=== PATIENT | female | born 1935 | race Caucasian/White ===

== ENCOUNTER 2016-07-13 16:21 | Inpatient (IN) | payer MEDICARE, OTHER ==
[~2016-07-13] VITALS: Ht 175.3 cm; Wt 63.2 kg
--- NOTE | ~2016-07-13 | OP ---
PATIENT NAME: GIBRAN ROMAN MEDICAL RECORD: [id number] :31 LOCATION:D. D.2115 ADMISSION DATE:07/14/16 SURGEON: ANTHONY HI MD DATE OF OPERATION: 07/16/2016 SURGEON: Anthony Hi MD ANESTHESIA: General, Dr. Camarena. OPERATION PERFORMED: Insertion of dual chamber pacing system. PREOPERATIVE DIAGNOSIS: Second-degree heart block with profound bradycardia. POSTOPERATIVE DIAGNOSIS: Second-degree heart block with profound bradycardia. INDICATION FOR OPERATION: Bradycardia. FINDINGS OF THE OPERATION: Pulse generator Medtronic Adapta ADDR01, serial number [id number]. ATRIAL LEAD: Medtronic model number 4574-45, serial number [id number]. Ventricular lead Medtronic model number 4074-52, serial number [id number]. LEAD ANALYSIS: Atrial lead threshold 1 volt, current lead threshold 1.7 milliamps, resistance 576 ohms. P-wave 1.7. Ventricular lead threshold 0.3 volts, current lead threshold 0.4 milliamps, resistance 1000 ohms, R-wave 4.7. ESTIMATED BLOOD LOSS: Less than 5 cc. DESCRIPTION OF PROCEDURE: After informed consent, adequate preoperative medication evaluation, the patient was brought to the operating room and placed on the table in the supine position. After induction of general endotracheal anesthesia and application of appropriate monitoring devices, the left chest and neck were prepped and draped in sterile field, utilizing Betadine scrub, alcohol, and Betadine solution. A Betadine-impregnated drape was also used. A subclavian incision made and dissection carried down the fascia. Hemostasis maintained with electrocautery. A pacemaker pocket was formed. Subclavian vein was cannulated with introducers, leads placed in the heart. The above electrophysiologic study was done. The leads were felt to be in good position and the leads were secured. The leads were then connected to the pulse generator and pacemaker placed in the pocket. Pacemaker fired, captured and sensed appropriately. Pocket was irrigated. Instrument count and sponge count were correct times 2. Pocket was closed in layers utilizing 3-0 Vicryl on deep subcutaneous tissue, 5-0 subcuticular Monocryl on the skin. Sterile dressings were applied. The patient tolerated the procedure well and transferred to postanesthesia recovery in satisfactory condition. TRANSINT:[id number] Voice Confirmation ID: [id number] DOCUMENT ID: [id number] OPERATIVE REPORT [id number] GIBRAN ROMAN EDWARD MD CC: [id number] DICTATION DATE: 07/16/16 1432 BOTTLE LINE WORKER: 07/16/16 2340 ADM IN [id number] [place] [address]
--- NOTE | ~2016-07-13 | EC ---
PATIENT:GIBRAN ROMAN DATE OF SERVICE: 07/14/16 SEX: F MEDICAL RECORD: [id number] DATE OF : 31 LOCATION:D. D.211 AGE OF PATIENT: 81 ADMISSION DATE: 07/14/16 REFERRING PHYSICIAN: INTERPRETING PHYSICIAN: JUAN PULIDO M.D. ECHOCARDIOGRAM REPORT ECHO CHARGES 4 ECHO COMPLETE CLINICAL DIAGNOSIS: 2ND DEGREE AV BLOCK, CHEST PAIN ECHOCARDIOGRAPHIC MEASUREMENTS (adult normal given) AC root (d.<3.7cm) 3.0 LV Septum d (<1.2 cm> 1.1 Valve Excursion 1.8 LV Septum (systole) 1.5 Left Atria (s.<4.0cm> 3.6 LVPW d(<1.2cm) 1.3 RV (d.<2.3cm) 3.4 LVPW (sytole) 1.4 LV diastole(<5.6CM) 4.8 MV E-F(>70mm/sec) LV systole 2.5 LVOT Diameter 2.0 MV exc.(>10mm) 1.2 Est.ejection fraction (50-75%) Pericardial Effusion N DOPPLER: LVIT A 79.0 E 96.0 LA RVSP 31 LVOT 96 AOP1/2T Asc. Ao 170 RVOT 68 RA PA 111 AV Gradient Peak 11.53 AV Mean 6.48 AV Area 1.7 MV Gradient Peak 4.67 MV Mean 2.29 MV Area COMMENTS: Machine Clipper: Dorcas CARRERA Two Way Radio Installer:2 Dr. Pulido TAPE# PACS DATE OF SERVICE: 07/14/2016 INDICATION: Chest pain. REFERRING PHYSICIAN: Jonnathan Troncoso MD DESCRIPTION: Left ventricle is normal size and function. No wall motion abnormalities are seen. Estimated ejection fraction is 55%. Mitral valve is structurally normal. There is mild regurgitation noted. The left atrium is normal in size. The aortic valve is trileaflet. I do not see any stenosis or ECHOCARDIOGRAM REPORT [id number] GIBRAN ROMAN regurgitation. The right ventricle is mildly dilated. Tricuspid valve is structurally normal. There is mild regurgitation noted. The right atrium is normal in size. There is no pericardial effusion seen. IMPRESSION: 1. Normal left ventricular size and function, ejection fraction of 55%. 2. Mild mitral regurgitation. 3. Mild tricuspid regurgitation. TRANSINT:[id number] Voice Confirmation ID: [id number] DOCUMENT ID: [id number] JUAN PULIDO M.D. CC: [id number] DICTATION DATE: 07/15/16951 WINDOWS MOBILE DEVELOPER: 07/15/16 1100 ADM IN [id number] [place] [address]
[~2016-07-13 16:21] MED LIST: BUPROPION HCL100 M1 PO; BUPROPION PO; GLUCOSAMINE & C1 CAP PO; HYDROCODON-ACE1 EAC7 PO; IPRAT-ALBUT 0.5-3 ML UPD; LEVOFLOXACIN PO; MAVIK1 MG PO; MAVIK2 MG PO; NORVASC5 MG PO; PRAVACHOL20 MG; PRAVACHOL20 MG PO; PREMPRO 0.3 MG-1 TAB PO; PROMOLAXIN100 MG PO; PROVERA2.5 MG PO; XANAX0.5 MG PO
[2016-07-13 16:51] LABS: HEMATOCRIT 40.3 % (36.0-48.0); HEMOGLOBIN 13.1 g/dL (12-16); MCH 30.3 pg (26.0-34.0); MCHC 32.5 g/dL (31.0-37.0); MCV 93.1 fL (80.0-100.0); PLATELET COUNT 80 10x3/uL (130-400); RBC 4.33 10x6/uL (4.00-5.40); WBC 8.1 10x3/uL (4.8-10.8)
[2016-07-13 17:21] LABS: ALBUMIN 4.3 g/dL (3.4-5.0); ALKALINE PHOSPHATASE 58 U/L (46-116); ALT (SGPT) 28 U/L (10-68); CALC OSMOLALITY 283 mosm/kg (275-300); CALCIUM 8.9 mg/dL (8.5-10.1); CARBON DIOXIDE 27.5 mmol/L (21.0-32.0); CHLORIDE - SERUM 105 mmol/L (98-107); CREATININE - SERUM 1.9 mg/dL (0.6-1.3); GLUCOSE 92 mg/dL (74-106); POTASSIUM - SERUM 4.3 mmol/L (3.5-5.1); PROTEIN - SERUM 6.9 g/dL (6.4-8.2); SODIUM 141 mmol/L (136-145); UREA NITROGEN 22 mg/dL (7-18); eGFR NON AFRICAN AMERICAN 27 mL/min (90-120)
[2016-07-13 17:30] LABS: CHOL - HDL RATIO 2.2 ratio (2.3-4.1); CHOLESTEROL, TOTAL 112 mg/dL (0-200); CKMB 1.5 U/L (0.0-3.6); CREATINE KINASE 101 UL (21-215); HDL CHOLESTEROL 50 mg/dL (32-96); LDL CHOLESTEROL 37 mg/dL (0-100); LDL-HDL RATIO 0.7 ratio (1.5-3.5); TRIGLYCERIDE 126 mg/dL (30-200)
[2016-07-13 17:35] LABS: TROPONIN-I < 0.017 ng/mL (0.000-0.060)
[2016-07-13 17:58] LABS: LYMPHOCYTES 49 % (15-50); MONOCYTES 12 % (2-11); NEUTROPHILS 38 % (40-80); PLATELET ESTIMATE DECREASED
[2016-07-13] MEDS ORDERED: SYNTHROID25 MCG PO (19:44)
[2016-07-13] MEDS ORDERED: PRAVASTATIN SOD10 MG PO (19:52)
[2016-07-13 19:53] VITALS: BP 149/63; BMI 22.9
[2016-07-14] VITALS: BP 123/62
[2016-07-14 04:00] VITALS: BP 110/59
[2016-07-14 08:00] VITALS: BP 125/55
[2016-07-14 12:00] VITALS: BP 122/64
[2016-07-14 16:00] VITALS: BP 128/63
[2016-07-14 19:00] VITALS: BP 134/68
[2016-07-15] VITALS: BP 143/62
[2016-07-15 04:23] VITALS: BP 136/57
[2016-07-15 08:00] VITALS: BP 137/62
[2016-07-15 12:00] VITALS: BP 116/65
[2016-07-15 19:46] VITALS: BP 103/49
[2016-07-15 23:27] VITALS: BP 131/63
[2016-07-16 03:43] VITALS: BP 126/45
[2016-07-16 05:07] LABS: HEMATOCRIT 39.6 % (36.0-48.0); HEMOGLOBIN 12.8 g/dL (12-16); MCH 30.2 pg (26.0-34.0); MCHC 32.3 g/dL (31.0-37.0); MCV 93.4 fL (80.0-100.0); PLATELET COUNT 93 10x3/uL (130-400); RBC 4.24 10x6/uL (4.00-5.40); WBC 6.8 10x3/uL (4.8-10.8)
[2016-07-16 05:12] LABS: APTT 27.6 SECONDS (22.8-39.4); INR 1.2 (0.85-1.17); PROTIME 15.1 SECONDS (11.6-15.0)
[2016-07-16 05:13] LABS: ANION GAP 12.2 mmol/L (8-16); CALCIUM 8.7 mg/dL (8.5-10.1); CARBON DIOXIDE 24.9 mmol/L (21.0-32.0); CREATININE - SERUM 1.9 mg/dL (0.6-1.3); POTASSIUM - SERUM 4.1 mmol/L (3.5-5.1)
[2016-07-16 07:37] VITALS: BP 114/53
[2016-07-16 11:22] VITALS: BP 127/53
[2016-07-16 13:03] VITALS: Ht 175.3 cm; Wt 63.2 kg
[2016-07-16 15:46] VITALS: BP 139/65
[2016-07-16 16:00] VITALS: BP 145/68
[2016-07-16 20:00] VITALS: BP 148/66
[2016-07-17 00:59] VITALS: BP 143/68
[2016-07-17 04:16] VITALS: BP 141/67
[2016-07-17 08:02] VITALS: BP 151/86
[2016-07-17 11:43] VITALS: BP 130/70
[2016-07-17 11:53] LABS: BASOPHILS 0.1 % (0-2); EOSINOPHILS 0.5 % (0-7); HEMATOCRIT 41.2 % (36.0-48.0); HEMOGLOBIN 13.5 g/dL (12-16); IMMATURE GRANULOCYTES 1.4 % (0-5); LYMPHOCYTES 9.8 % (15-50); MCH 30.3 pg (26.0-34.0); MCHC 32.8 g/dL (31.0-37.0); MCV 92.4 fL (80.0-100.0); MONOCYTES 28.7 % (2-11); NEUTROPHILS 59.5 % (40-80); PLATELET COUNT 85 10x3/uL (130-400); RBC 4.46 10x6/uL (4.00-5.40); RDW 14.7 % (11.5-14.5)
[2016-07-17 12:04] LABS: CALCIUM 8.3 mg/dL (8.5-10.1); CARBON DIOXIDE 26.7 mmol/L (21.0-32.0); CREATININE - SERUM 1.8 mg/dL (0.6-1.3); POTASSIUM - SERUM 3.7 mmol/L (3.5-5.1)
[2016-07-17 12:07] LABS: WBC 12.1 10x3/uL (4.8-10.8)
--- NOTE | 2016-07-18 17:02 | DS ---
PATIENT:GIBRAN ROMAN :31 MEDICAL RECORD: [id number] DISCHARGE SUMMARY ADMISSION DATE: 07/14/16 DISCHARGE DATE: 07/17/16 DATE OF ADMISSION: 07/14/2016 DATE OF DISCHARGE: 07/17/2016 ADMITTING DIAGNOSES: 1. Chest pain. 2. Bradycardia. 3. Chronic back pain, chronic compression fracture, sick sinus syndrome, Mobitz type 1 (Wenckebach) atrioventricular block, Mobitz type 2 atrioventricular block, Mobitz type 1 second degree atrioventricular block, bradycardia, presyncope, other chronic problems, thrombocytopenia and chronic kidney disease. HOSPITAL COURSE: This is a lady of Dr. Guthrie. She was admitted with diagnoses as outlined above. Details are well-outlined in the history of the present illness, H&P. All events, lab procedures, diagnostic testing are well documented in the records. The patient was admitted, appropriate home medicines continued. Cardiology consulted. She was seen by Dr. Pulido, was found to be in heart block. DIAGNOSES: Shortness of breath on exertion, felt secondary to bradycardia. 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 She was continued on telemetry monitoring. Dr. Pulido consulted Dr. Hi. She was felt to be a candidate for permanent pacemaker. She was taken to the OR where she had insertion of a dual chamber pacing system. She tolerated the procedure well, was awakened and taken to the recovery room in stable condition. She was kept overnight. She has done well postoperatively. OTHER PROCEDURES: Included her echocardiogram that showed EF of 55%, mild mitral regurgitation, mild tricuspid regurgitation. PHYSICAL EXAMINATION: Today she is afebrile, vital signs stable. She is ambulating the entire length of the nurses' station. Pulse 62, respirations 20, blood pressure 130/70, O2 sat 100%. She is in a paced rhythm on the monitor. LABORATORY DATA: White count 12, hemoglobin 13.5, platelets 85, which is about her baseline. BUN 16, serum creatinine 1.8 down from 1.9, sodium 139, potassium 3.7, chloride 105, CO2 of 26.5, glucose 92, calcium 8.3. She is stable for dismissal home. Please refer to med rec. DIAGNOSES: 1. Sick sinus syndrome, Mobitz type ____ (Wenckebach) atrioventricular block, Mobitz type 2 atrioventricular block. 2. Mobitz type 1 second degree atrioventricular block, bradycardia status post permanent dual chamber pacemaker, presyncope, chronic compression fracture, chronic back pain, chronic thrombocytopenia, chronic kidney disease stage III. FOLLOWUP: She will follow up with house calls with Dr. Saldaña. Follow up with Dr. Pulido and Dr. Hi. DISCHARGE SUMMARY REPORT [id number] GIBRAN ROMAN Greater than 30 minutes was spent on this discharge. TRANSINT:[id number] Voice Confirmation ID: [id number] DOCUMENT ID: [id number] Dictated By: JACKIE WINN RN I have interviewed/examined the above patient and agree with these documented findings. SHONDA CARSON DO at 1702 CC: [id number] DICTATION DATE: 07/17/16 1535 PHARMACY INTAKE TECHNICIAN: 07/18/16 0251 DIS IN 07/17/16 [id number] [place] [address]
== END 2016-07-17 14:30 | disposition home or self-care (01) | DRG 243 ==
LOC: D.ER 16:21 → D.M2 18:30 → OBSVTIME 18:30 → D.M2 18:30
PROVIDERS: Emergency Medicine; Family Medicine; Internal Medicine Cardiovascular Disease; ADMIT Emergency Medicine
PROC: 02H63JZ Insertion of Pacemaker Lead into Right Atrium, Percutaneous Approach (ICD-10-PCS; 2016-07-16)
PROC: 02HK3JZ Insertion of Pacemaker Lead into Right Ventricle, Percutaneous Approach (ICD-10-PCS; 2016-07-16)
PROC: 0JH606Z Insertion of Pacemaker, Dual Chamber into Chest Subcutaneous Tissue and Fascia, Open Approach (ICD-10-PCS; principal; 2016-07-16 12:00)
DX: I44.1 Atrioventricular block, second degree (principal); S32.9XXA Fracture of unspecified parts of lumbosacral spine and pelvis, initial encounter for closed fracture; I44.7 Left bundle-branch block, unspecified; D69.6 Thrombocytopenia, unspecified; I12.9 Hypertensive chronic kidney disease with stage 1 through stage 4 chronic kidney disease, or unspecified chronic kidney disease; N18.3 Chronic kidney disease, stage 3 (moderate); F41.8 Other specified anxiety disorders; Z87.891 Personal history of nicotine dependence

== ENCOUNTER → 2016-11-02 20:46 | Outpatient (CLI) | payer MEDICARE, OTHER ==
[2016-07-16 13:03] VITALS: BMI 20.5
[~2016-11-02 20:46] MED LIST changes: +PRAVASTATIN SOD10 MG PO; +SYNTHROID25 MCG PO
== END | disposition home or self-care (01) ==
LOC: D.MAMMO 15:30
DX: Z12.31 Encounter for screening mammogram for malignant neoplasm of breast (principal)

== ENCOUNTER 2018-06-24 07:29 | Outpatient (CLI) | payer MEDICARE, OTHER ==
[~2018-06-24] VITALS: Ht 175.3 cm; Wt 65.9 kg
[~2018-06-24 07:29] MED LIST changes: -PRAVASTATIN SOD10 MG PO
[2018-06-24 08:13] LABS: HEMATOCRIT 38.8 % (36.0-48.0); HEMOGLOBIN 13.1 g/dL (12-16); MCH 29.6 pg (26.0-34.0); MCHC 33.8 g/dL (31.0-37.0); MCV 87.8 fL (80.0-100.0); PLATELET COUNT 127 10x3/uL (130-400); RBC 4.42 10x6/uL (4.00-5.40); RDW 17.8 % (11.5-14.5); WBC 69.2 10x3/uL (4.8-10.8)
[2018-06-24 08:15] LABS: ANION GAP 15.9 mmol/L (8-16); CALCIUM 8.5 mg/dL (8.5-10.1); CARBON DIOXIDE 23.8 mmol/L (21.0-32.0); CREATININE - SERUM 1.4 mg/dL (0.6-1.3); POTASSIUM - SERUM 3.7 mmol/L (3.5-5.1)
[2018-06-24 08:17] LABS: INR 1.39 (0.85-1.17); PROTIME 16.4 SECONDS (11.6-15.0)
[2018-06-24] MEDS ORDERED: TRANDOLAPRIL2 MG PO (09:02)
[2018-06-24] MEDS ORDERED: CITALOPRAM HYDROBROM PO (09:04)
[2018-06-24] MEDS ORDERED: ATARAX 25 MG TA25 MG PO (09:06)
[2018-06-24] MEDS ORDERED: LUNESTA1 MG PO (09:07)
[2018-06-24 09:16] VITALS: BP 126/63; Ht 175.3 cm; Wt 65.9 kg
[2018-06-24 09:23] LABS: ACANTHOCYTES OCC; ANISOCYTOSIS OCC; EOSINOPHILS 3 % (0-7); LYMPHOCYTES 12 % (15-50); MONOCYTES 42 % (2-11); NEUTROPHILS 18 % (40-80); PLATELET ESTIMATE NORMAL
[2018-06-24 12:21] LABS: PATH REVIEW PERIPHERAL SMEAR REVIEWED
--- NOTE | 2018-06-24 13:31 | NUR ---
1150 FREQUENT VS DONE DRESSING CDI ICE PACK APPLIED. TAKING LIQ WELL. 1215 VOIDED IN BATHROOM, INSTRUCTIONS GIVEN. 1300 IV REMOVED, INSTRUCTIONS GIVEN TO PT AND SON.
== END 2018-06-24 13:30 | disposition home or self-care (01) ==
LOC: D.SP 07:29 → D.OPS 10:00 → D.SP 10:00
PROVIDERS: General Practice; ATTEND Internal Medicine Hematology & Oncology
DX: D69.49 Other primary thrombocytopenia (principal); D72.829 Elevated white blood cell count, unspecified; Z01.812 Encounter for preprocedural laboratory examination

== ENCOUNTER → 2018-08-19 09:18 | Outpatient (CLI) | payer MEDICARE, OTHER ==
[2018-06-24 09:16] VITALS: BMI 21.4
[~2018-08-19 09:18] MED LIST changes: +ATARAX 25 MG TA25 MG PO; +CITALOPRAM HYDROBROM PO; +LUNESTA1 MG PO; +TRANDOLAPRIL2 MG PO
== END | disposition home or self-care (01) ==
LOC: D.CT 09:18
PROVIDERS: ATTEND Nurse Practitioner Family
DX: J98.4 Other disorders of lung (principal)

== ENCOUNTER 2018-12-22 10:52 | Emergency (ER) | payer MEDICARE, OTHER ==
[~2018-12-22] VITALS: Ht 175.3 cm; Wt 61.8 kg
[2018-12-22 11:01] VITALS: Ht 175.3 cm; Wt 61.8 kg
[2018-12-22] MEDS ORDERED: NAPROSYN500 MG PO (11:42)
[2018-12-22 12:15] VITALS: BP 133/64
== END 2018-12-22 12:15 | disposition home or self-care (01) ==
LOC: D.ER 10:52
DX: M54.5 Low back pain (principal)

== ENCOUNTER 2019-01-29 19:45 | Inpatient (IN) | payer MEDICARE, OTHER ==
[~2019-01-29] VITALS: Ht 175.3 cm; Wt 66.8 kg
[~2019-01-29 19:45] MED LIST changes: +NAPROSYN500 MG PO
[2019-01-29 20:22] LABS: HEMATOCRIT 33.3 % (36.0-48.0); HEMOGLOBIN 10.7 g/dL (12-16); MCH 29.2 pg (26.0-34.0); MCHC 32.1 g/dL (31.0-37.0); MCV 90.7 fL (80.0-100.0); PLATELET COUNT 74 10x3/uL (130-400); RBC 3.67 10x6/uL (4.00-5.40); RDW 17.9 % (11.5-14.5)
[2019-01-29 20:23] LABS: WBC 66.1 10x3/uL (4.8-10.8)
[2019-01-29 20:27] LABS: INR 1.57 (0.85-1.17); PROTIME 18.2 SECONDS (11.6-15.0)
[2019-01-29 20:28] LABS: APTT 39.4 SECONDS (22.8-39.4)
[2019-01-29 20:29] LABS: CALC OSMOLALITY 280 mosm/kg (275-300); CALCIUM 8.1 mg/dL (8.5-10.1); CARBON DIOXIDE 21.4 mmol/L (21.0-32.0); CHLORIDE - SERUM 103 mmol/L (98-107); CREATININE - SERUM 1.5 mg/dL (0.6-1.3); GLUCOSE 121 mg/dL (74-106); POTASSIUM - SERUM 3.8 mmol/L (3.5-5.1); SODIUM 139 mmol/L (136-145); UREA NITROGEN 19 mg/dL (7-18); eGFR NON AFRICAN AMERICAN 35 mL/min (90-120)
--- NOTE | 2019-01-29 20:40 | NUR ---
PT TO RADIOLOGY.
[2019-01-29 20:45] LABS: ALBUMIN 4.1 g/dL (3.4-5.0); ALKALINE PHOSPHATASE 67 U/L (46-116); ALT (SGPT) 31 U/L (10-68); BILIRUBIN - TOTAL 2.47 mg/dL (0.2-1.3); CKMB 0.3 U/L (0.0-3.6); CREATINE KINASE 36 UL (21-215); HYPOCHROMASIA 2+; LYMPHOCYTES 13 % (15-50); MAGNESIUM - SERUM 1.6 mg/dL (1.8-2.4); MONOCYTES 14 % (2-11); NEUTROPHILS 58 % (40-80); PLATELET ESTIMATE DECREASED; PROTEIN - SERUM 6.6 g/dL (6.4-8.2); THYROID STIMULATING HORMONE 1.71 uIU/mL (0.36-3.74)
[2019-01-29 20:46] LABS: ACANTHOCYTES 1+; ANISOCYTOSIS 1+; POIKILOCYTOSIS 1+; POLYCHROMASIA 1+; TEAR DROP CELLS 2+; TROPONIN-I < 0.017 ng/mL (0.000-0.060)
[2019-01-29 20:57] VITALS: BP 111/42
--- NOTE | 2019-01-29 21:02 | NUR ---
PT RETURNED FROM RADIOLOGY.
[2019-01-29 21:46] LABS: APPEARANCE CLEAR (CLEAR); BACTERIA MANY /hpf (NEGATIVE); BILIRUBIN NEGATIVE (NEGATIVE); COLOR YELLOW (YELLOW); GLUCOSE NEGATIVE (NEGATIVE); KETONE MODERATE mg/dL (NEGATIVE); MUCUS >1+ /lpf (NONE SEEN); NITRITE NEGATIVE (NEGATIVE); PROTEIN TRACE mg/dL (NEGATIVE); UROBILINOGEN NORMAL (NORMAL)
[2019-01-29 21:57] LABS: UDS - AMPHET NEGATIVE QUAL (NEGATIVE); UDS - BARB NEGATIVE QUAL (NEGATIVE); UDS - BENZO NEGATIVE QUAL (NEGATIVE); UDS - COCAINE NEGATIVE QUAL (NEGATIVE); UDS - OPIATE NEGATIVE QUAL (NEGATIVE); UDS - PCP NEGATIVE QUAL (NEGATIVE); UDS - THC NEGATIVE QUAL (NEGATIVE)
--- NOTE | 2019-01-29 22:03 | NUR ---
PT GIVEN ICE WATER TO DRINK, DENIES ANY FURTHER NEEDS AT THIS TIME, CALL LIGHT WITHIN REACH, SON AT BEDSIDE. WILL CONTINUE TO MONITOR.
[2019-01-29 22:36] VITALS: BP 111/48
--- NOTE | 2019-01-29 23:20 | NUR ---
ADMITTED TO 2138 VIA STRETCHER TOLERATED WELL TO BED LOW AND LOCKED AND CALL LIGHT PROVIDED SRX2 AND ASSISTED WITH COMFORT AND FOOD
--- NOTE | 2019-01-29 23:30 | NUR ---
PT'S IV ROCEPHIN FINISHED.
--- NOTE | 2019-01-29 23:42 | NUR ---
PT DOES NOT KNOW HOME MEDS LAST MED LIST IN THE COMPUTER IS FROM 2016
[2019-01-29 23:55] VITALS: BP 107/40; BMI 21.3
[2019-01-30 04:00] VITALS: BP 113/47
[2019-01-30 06:06] LABS: ALBUMIN 3.6 g/dL (3.4-5.0); ANION GAP 15.4 mmol/L (8-16); BILIRUBIN - TOTAL 2.07 mg/dL (0.2-1.3); CARBON DIOXIDE 23.3 mmol/L (21.0-32.0); CREATININE - SERUM 1.5 mg/dL (0.6-1.3); POTASSIUM - SERUM 3.7 mmol/L (3.5-5.1)
[2019-01-30 06:09] LABS: HEMATOCRIT 29.6 % (36.0-48.0); HEMOGLOBIN 9.6 g/dL (12-16); MCH 29.2 pg (26.0-34.0); MCHC 32.4 g/dL (31.0-37.0); PLATELET COUNT 72 10x3/uL (130-400); RBC 3.29 10x6/uL (4.00-5.40); RDW 18.3 % (11.5-14.5)
[2019-01-30 06:12] LABS: WBC 55.8 10x3/uL (4.8-10.8)
[2019-01-30 06:48] LABS: ANISOCYTOSIS 1+; EOSINOPHILS 1 % (0-7); LYMPHOCYTES 8 % (15-50); MONOCYTES 15 % (2-11); NEUTROPHILS 44 % (40-80); PLATELET ESTIMATE DECREASED; POIKILOCYTOSIS 2+
[2019-01-30 08:50] VITALS: BP 119/46
[2019-01-30 13:42] VITALS: BP 102/50
[2019-01-30 14:04] VITALS: BMI 21.4
--- NOTE | 2019-01-30 15:46 | NUR ---
PT NOT ABLE TO GIVE ACCURATE MED LIST. SON WORKING TONIGHT BUT STATES WILL TRY AND BRING LIST FROM HOME OR BOTTLES TO UPDATE.
[2019-01-30 18:26] VITALS: BP 115/48
--- NOTE | 2019-01-30 19:52 | NUR ---
REPORT RECIEVED AND ROUNDING COMPLETE. PATIENT LAYING IN BED IN SUPINE POSITITON. PATIENT HAS A RIGHT WRIST PIV THAT IS PATENT AND RUNNING NS AT THIS TIME. PATIENT STATES SHE IS FEELING BETTER TODAY AND HOPE TO GO HOME IN THE MORNING. TRUNG HAS A LISSA ALARM ON AND WORKING EVEN THO SHE IS A&O AT THIS TIME. PATIENT STATES SHE HAS NO NEEDS AT THIS TIME. CALL LIGHT WITHIN REACH AND BED IN LOWEST LOCKED POSITION.
[2019-01-30 20:00] VITALS: BP 109/52
[2019-01-31] VITALS: BP 108/52
--- NOTE | 2019-01-31 03:06 | NUR ---
I have reviewed this patient and I concur with the Shift Assessment completed by the Licensed Practical Nurse today this shift.
[2019-01-31 04:30] VITALS: BP 122/44
[2019-01-31 06:47] LABS: ALBUMIN 3.4 g/dL (3.4-5.0); ANION GAP 18.2 mmol/L (8-16); BILIRUBIN - TOTAL 0.92 mg/dL (0.2-1.3); CALCIUM 7.5 mg/dL (8.5-10.1); CARBON DIOXIDE 18.2 mmol/L (21.0-32.0); CREATININE - SERUM 1.3 mg/dL (0.6-1.3); MAGNESIUM - SERUM 1.6 mg/dL (1.8-2.4); POTASSIUM - SERUM 3.4 mmol/L (3.5-5.1); PROTEIN - SERUM 5.5 g/dL (6.4-8.2)
[2019-01-31 06:54] LABS: HEMATOCRIT 28.2 % (36.0-48.0); HEMOGLOBIN 9.1 g/dL (12-16); MCH 28.8 pg (26.0-34.0); MCHC 32.3 g/dL (31.0-37.0); MCV 89.2 fL (80.0-100.0); PLATELET COUNT 61 10x3/uL (130-400); RBC 3.16 10x6/uL (4.00-5.40); RDW 18.5 % (11.5-14.5); WBC 57.6 10x3/uL (4.8-10.8)
[2019-01-31 07:20] LABS: EOSINOPHILS 5 % (0-7); MONOCYTES 4 % (2-11); NEUTROPHILS 53 % (40-80); PLATELET ESTIMATE DECREASED
--- NOTE | 2019-01-31 07:20 | NUR ---
RECEIVED REPORT. ASSUMED CARE OF PATIENT. PATIENT AWAKE AND ALERT BUT STATES SHE FEELS LIKE SHE CAN'T THINK STRAIGHT AT TIME BECAUSE OF THE INFECTION IN HER URINE. RESP EVEN AND UNLABORED. PACED ON TELEMETRY, RATE 89. CALL LIGHT WITHIN REACH. NO DISTRESS.
[2019-01-31 07:34] LABS: LYMPHOCYTES 24 % (15-50)
[2019-01-31 08:36] VITALS: BP 110/46
--- NOTE | 2019-01-31 11:28 | NUR ---
RECEIVING BATH AT THIS TIME. NO DISTRESS.
[2019-01-31 12:30] VITALS: BP 122/53
--- NOTE | 2019-01-31 15:22 | NUR ---
PATIENT LYING IN BED WITH EYES OPEN,FAMILY AT BEDSIDE. CALL LIGHT WITHIN REACH. NO DISTRESS. DENIES ANY NEEDS. IV FLUIDS INFUSING ORDERED.
[2019-01-31 16:07] VITALS: BP 122/50
--- NOTE | 2019-01-31 19:10 | NUR ---
EVENING ROUNDS COMPLETE, WILL CONTINUE POC. PATIENT IS AAOX4, UP WITH ASSIST. NO S/S OF DISTRESS OBSERVED, RR EVEN AND UNLABORED ON ROOM AIR. IV TO RT WRIST, PATENT, INFUSING NS @125ML/HR. PATIENT DENIES NEEDS AT THIS TIME. CL IN REACH, BED LOCKED AND LOWERED. WILL CTM.
[2019-01-31 20:03] VITALS: BP 139/62
[2019-02-01 00:30] VITALS: BP 136/61
--- NOTE | 2019-02-01 01:19 | NUR ---
PATIENT O2 SAT WAS 87% DURING MIDNIGHT VITALS. 2L O2 VIA NC APPLIED. PATIENT O2 SAT NOW 93% PATIENT IS REFUSING TO WEAR THE NC AND IS REMOVING IT REPEATEDLY. EXPLAINED TO PATIENT THAT IF HER O2 SAT DOESN'T STAY IN THE 90S SHE MUST WEAR THE O2 IN ORDER TO BREATHE BETTER. PATIENT AGREES AND THEN REMOVES AGAIN. WILL CTM.
[2019-02-01 04:46] VITALS: BP 127/61
[2019-02-01 06:44] LABS: ALBUMIN 3.4 g/dL (3.4-5.0); ANION GAP 14.8 mmol/L (8-16); BILIRUBIN - TOTAL 0.79 mg/dL (0.2-1.3); CARBON DIOXIDE 21.2 mmol/L (21.0-32.0); CREATININE - SERUM 1.1 mg/dL (0.6-1.3); MAGNESIUM - SERUM 1.7 mg/dL (1.8-2.4); PROTEIN - SERUM 6.3 g/dL (6.4-8.2)
[2019-02-01 06:51] LABS: HEMATOCRIT 29.5 % (36.0-48.0); HEMOGLOBIN 9.4 g/dL (12-16); MCHC 31.9 g/dL (31.0-37.0); PLATELET COUNT 65 10x3/uL (130-400); RBC 3.24 10x6/uL (4.00-5.40); RDW 18.9 % (11.5-14.5); WBC 66.1 10x3/uL (4.8-10.8)
--- NOTE | 2019-02-01 07:00 | NUR ---
RECEIVED REPORT. ASSUMED CARE OF PATIENT. PATIENT RESTING IN BED WITH EYES CLOSED. ADJUSTED TEMPERATURE IN ROOM PER PATIENT REQUEST. PATIENT CONFUSED THIS AM AND REPORTED THAT PATIENT WAS CONFUSED THROUGHOUT THE NIGHT ACCUSING NIGHT NURSE OF NOT ADMINISTERING HER MEDICATIONS, ETC. RESP EVEN AND UNLABORED, WET NON-PRODUCTIVE COUGH NOTED. NO DISTRESS. REORIENTED.
[2019-02-01 07:28] LABS: ANISOCYTOSIS OCC; EOSINOPHILS 3 % (0-7); LYMPHOCYTES 17 % (15-50); MONOCYTES 3 % (2-11); NEUTROPHILS 69 % (40-80); POIKILOCYTOSIS OCC
[2019-02-01 07:29] LABS: PLATELET ESTIMATE DECREASED
[2019-02-01 08:00] VITALS: BP 134/60
--- NOTE | 2019-02-01 09:56 | NUR ---
PATIENT SITTING TO SIDE OF BED. PATIENTS SON AT BEDSIDE. CALL LIGHT WITHIN REACH. NO DISTRESS.
--- NOTE | 2019-02-01 10:34 | NUR ---
PATIENT OOB TO CHAIR AT BEDSIDE VIA THIS CLIENT SUPPORT MANAGER. PATIETN ENCOURAGED TO SIT UP. PATIENT SPENDING MOST TIME IN BED AND HAS DEVELOPED A COUGH. EXPLAINED THAT SITTING UP WOULD ALLOW BETTER EXPANSION OF LUNGS, AND GETTING UP MOVING AROUND WILL HELP PREVENT SECRETIONS FROM SETTLING IN LUNGS. PATIENT NOT COMPREHENDING MOST OF THE DIRECTIONS BUT THE SON AT BEDSIDE APPRECIATE EXPLANATIONS OF ACTIVITES.
[2019-02-01 12:00] VITALS: BP 134/62
[2019-02-01] MEDS ORDERED: JAKAFI5 MG PO (12:10)
--- NOTE | 2019-02-01 12:30 | NUR ---
PAGED ABOUT PATIENT TO REQUEST TO RESTART THE MEDICAION - JAKAFI 10MG PO BID, PRIMARY WILL NOT RESTART THIS HOME MEDICATION WITHOUT SPEAKING TO DR. CHACON FIRST.
--- NOTE | 2019-02-01 12:47 | NUR ---
HERE FOR ROUNDS AND GAVE ORDERS TO CONTINUE TO HOLD THE JAKAFI WHILE PATIENT IS BEING TREATED WITH ANTIBIOTICS.
[2019-02-01 12:51] VITALS: Ht 175.3 cm; Wt 66.8 kg
[2019-02-01 16:00] VITALS: BP 124/62
--- NOTE | 2019-02-01 16:11 | MORECARE ---
CASE MANAGEMENT DISCHARGE SUMMARY PATIENT: GIBRAN ROMAN UNIT: [id number] ADM DATE: 01/30/19 AGE: 84 : 33 SEX: F ROOM/BED: D.213 AUTHOR: BERNARDINO WADDELL PHYSICIAN: REFERRING PHYSICIAN: LAKIA LOBATO MD DATE OF SERVICE: 02/01/19 Discharge Plan Patient Name: GIBRAN ROMAN Facility: [facility]:[place] : 1935 Planned Disposition: Anticipated Discharge Date: Discharge Date: Expected LOS: Initial Reviewer: [email or web address] Initial Review Date: 02/01/2019 Generated: 02/01/19 5:10 pm Comments DCP- Discharge Planning Updated by [email or web address]: Geovanna Marlena on 02/01/19 3:[address] Patient Name: GIBRAN ROMAN Admission Status: ER Accout number: [id number] Admission Date: 01-30-2019 : 1935 Admission Diagnosis: Attending: CHRIS Current LOS: 2 Anticipated DC Date: Planned Disposition: Primary Insurance: MEDICARE A & B Discharge Planning Comments: CM met with patient at bedside after explaining CM role and obtaining verbal consent. CM discussed availability / needs of home health, REHAB and medical equipment. STATES NO NEEDS AND HAS CAB DRIVER. STATES SHE PLANS TO DC SATURDAY. CM TO FOLLOW. Dependency Director: Geovanna Mendiola DCPIA - Discharge Planning Initial Assessment Updated by [email or web address]: Geovanna Mendiola on 02/01/19 4:04 pm * Is the patient Alert and Oriented? Yes * PCP NO * Pharmacy [facility] * ADLs Independent * Other Equipment [facility] * Community resources currently utilized Private Duty Care * Additional services required to return to the preadmission environment? No * Can the patient safely return to the preadmission environment? Yes * Has this patient been hospitalized within the prior 30 days at any hospital? No Patient Name: GIBRAN ROMAN Page [phone] at 1611 All edits/amendments must be made on the electronic document DICTATION DATE: 02/01/19 1610 PATROL POLICE SERGEANT: KEVIN 02/01/19 1610 RPT#: [id number] DC DATE: STATUS: ADM IN [facility] [address] [place] [address] END OF REPORT
--- NOTE | 2019-02-01 16:23 | NUR ---
MEDICATED FOR COUGHING AT THIS TIME.
--- NOTE | 2019-02-01 16:30 | NUR ---
WHEN PATIENTS SON LEFT, HOME MEDICATION - PEPITOAFI PROVIDED TO PATIENTS SON AND HE TOOK IT BACK HOME SINCE DOES NOT WANT TO ADMINISTER THE MEDICATION WHILE PATIENT IS ON ABX.
--- NOTE | 2019-02-01 17:00 | NUR ---
BATH AND LINEN CHANGE COMPLETE. NO DISTRESS. CALL LIGHT WITHIN REACH.
--- NOTE | 2019-02-01 19:02 | NUR ---
ASSISTED BACK TO BED FROM REST ROOM PT IS SLOW TO ANSWER BUT NOT CONFUSED PT IS ANXIOUS AND JUMPS WHEN I SPEAK BED LOW AND SRX2 CALL LIGHT PLACED WITH PT
[2019-02-01 20:30] VITALS: BP 151/69
[2019-02-02 00:13] VITALS: BP 134/42
--- NOTE | 2019-02-02 03:36 | NUR ---
I have reviewed this patient and I concur with the Shift Assessment completed by the Licensed Practical Nurse today this shift.
[2019-02-02 04:26] VITALS: BP 121/65
--- NOTE | 2019-02-02 06:15 | NUR ---
PT REPORTED THAT SHE FELL LAST NIGHT AND GOT HERSLF UP TO THE CHAIR. THEN WALKED OVER TO THE BED AND GOT BACK IN BED. ALERT AND ORIENTED X3. DENIES ANY PAIN AND NO INJURY OBSERVED. HAS FULL ROM. BERKLEY WINN PAGED AND AWAITING CALL BACK. SPOKE WITH SON (JOY ROMAN) AT 0615. PT SAID SHE FELL AROUND 7PM LAST NIGHT. SENIOR ELECTRICAL PROJECT MANAGER AWARE.
--- NOTE | 2019-02-02 06:23 | NUR ---
ALARM ON BED TURNED ON AND LISSA MAT PLACED ON BED. STAR PLACED ON DOOR. SON AWARE.
[2019-02-02 06:43] LABS: ALBUMIN 3.4 g/dL (3.4-5.0); ANION GAP 17.9 mmol/L (8-16); BILIRUBIN - TOTAL 0.95 mg/dL (0.2-1.3); CALCIUM 7.4 mg/dL (8.5-10.1); CARBON DIOXIDE 19.1 mmol/L (21.0-32.0); CREATININE - SERUM 1.1 mg/dL (0.6-1.3); MAGNESIUM - SERUM 1.4 mg/dL (1.8-2.4); PROTEIN - SERUM 5.6 g/dL (6.4-8.2)
[2019-02-02 06:46] LABS: HEMATOCRIT 28.3 % (36.0-48.0); HEMOGLOBIN 9.3 g/dL (12-16); MCH 29.2 pg (26.0-34.0); MCHC 32.9 g/dL (31.0-37.0); MCV 88.7 fL (80.0-100.0); PLATELET COUNT 59 10x3/uL (130-400); RBC 3.19 10x6/uL (4.00-5.40); RDW 18.7 % (11.5-14.5); WBC 74.4 10x3/uL (4.8-10.8)
--- NOTE | 2019-02-02 06:53 | NUR ---
BERKLEY WINN NOTIFIED AT 5723.
--- NOTE | 2019-02-02 08:12 | NUR ---
PATIENT IS AWAKE AND HAS HAD BREAKFAST. CHANGED BATTERIES IN THE LISSA ALARM AND IT IS ON. BED ALARM IS ON WELL. PATIENT REPORTS THAT SHE WILL LET US KNOW WHEN SHE NEEDS TO GET UP TO THE BATHROOM SHE HAS A DOLLAR BILL SIZE BRUISE ON THE UNDERSIDE OFF HER RIGHT UPPER ARM AND SHE REPORTS THAT SHE FELL LAST NIGHT. C STARS WAS FILLED OUT BY CHARGE NURSE ON SHIP RIGGER.
[2019-02-02 09:41] LABS: PATH REVIEW PERIPHERAL SMEAR REVIEWED
[2019-02-02 10:18] LABS: ACANTHOCYTES OCC; ANISOCYTOSIS OCC; CRENATED CELLS OCC; LYMPHOCYTES 5 % (15-50); MONOCYTES 49 % (2-11); NEUTROPHILS 25 % (40-80); PLATELET ESTIMATE DECREASED; SCHISTOCYTES OCC
[2019-02-02 10:42] VITALS: BP 138/51
--- NOTE | 2019-02-02 12:24 | NUR ---
NEW IV START IN LEFT HAND. 22G , TWO STICKS. PATIENT TOLERATED. IV FROM RIGHT WRIST REMOVED WITH CATHETER INTACT. PATIENT TOLERATED.
--- NOTE | 2019-02-02 12:26 | NUR ---
PATIENT IS USING HER O2 NOW. IV INFUSING ORDERED. SHE IS SITTING UP AT THE SIDE OF THE BED EATTING LUNCH. FAMILY AT BEDSIDE. BEDE ALARM ON.
--- NOTE | 2019-02-02 14:15 | NUR ---
Nutrition Follow-up: Pt reports good appetite/PO intake. Noted ST eval ordered. Diet: Regular PO intake: 79% avg x 7 meals No new wt Last BM: 02/01 Labs noted: WBC 74.4, K+ 3.0, GFR 50, Glu 122, Mg 1.4, Ca 7.4, Alb 3.4 Meds reviewed -Continue current diet as tolerated with consistencies per ST. -RD following.
[2019-02-02 18:39] VITALS: BP 145/89
[2019-02-02 20:35] VITALS: BP 146/62
[2019-02-03 00:30] VITALS: BP 139/64
[2019-02-03 04:30] VITALS: BP 124/61
[2019-02-03 07:27] LABS: ALBUMIN 3.2 g/dL (3.4-5.0); BILIRUBIN - TOTAL 1.11 mg/dL (0.2-1.3); CALCIUM 7.9 mg/dL (8.5-10.1); CARBON DIOXIDE 22.2 mmol/L (21.0-32.0); CREATININE - SERUM 1.1 mg/dL (0.6-1.3); MAGNESIUM - SERUM 1.6 mg/dL (1.8-2.4); PROTEIN - SERUM 5.6 g/dL (6.4-8.2)
--- NOTE | 2019-02-03 07:35 | NUR ---
RECIEVED REPORT. PATIENT IS RESTING ON HER BACK IN BED AT THIS TIME. SHE HAS BEEN UP SEVERAL TIMES AND SAYS THAT ," SHE CANT WAIT TO BE DISCHARGED SO SHE CAN GO HOME AND BUILD UP HER STRENGTH." SHE CAN GET UP WITH ASSIST TO THE BATHROOM, AND HAS BEEN LEAVING HER O2 ON TODAY WITH NO ARGUMENT. BED ALARM ON.
[2019-02-03 07:36] LABS: ANION GAP 15.1 mmol/L (8-16)
[2019-02-03 07:45] LABS: POTASSIUM - SERUM 2.3 mmol/L (3.5-5.1)
[2019-02-03 07:55] LABS: HEMATOCRIT 25.9 % (36.0-48.0); HEMOGLOBIN 8.5 g/dL (12-16); MCH 29.1 pg (26.0-34.0); MCHC 32.8 g/dL (31.0-37.0); MCV 88.7 fL (80.0-100.0); PLATELET COUNT 43 10x3/uL (130-400); RBC 2.92 10x6/uL (4.00-5.40); RDW 18.5 % (11.5-14.5); WBC 64.1 10x3/uL (4.8-10.8)
[2019-02-03 09:24] VITALS: BP 140/59
[2019-02-03 09:31] LABS: LYMPHOCYTES 11 % (15-50); MONOCYTES 45 % (2-11); NEUTROPHILS 30 % (40-80); PLATELET ESTIMATE DECREASED
[2019-02-03 09:32] LABS: ANISOCYTOSIS OCC; ELLIPTOCYTES OCC; ROULEAUX OCC; SCHISTOCYTES OCC; TEAR DROP CELLS OCC
--- NOTE | 2019-02-03 10:35 | NUR ---
IN PATIENT CHART TO ASSIST PATIENTS NURSE LOCATE DOCUMENTATION THAT THIS MAT LINKER WROTE ON DOCUMENTING GIVING THE CHEMO MED TO THE PATIENTS SON TO TAKE HOME
--- NOTE | 2019-02-03 10:57 | NUR ---
DR CHACON ORDERED TO RESTART THE PATIENTS JAKAFI. HOWEVER IT WAS NOT IN PHARMACY, MONSERRAT HAD GIVEN IT BACK TO THE SON ON SATURDAY, AND THERE IS DOCUMENTATION TO THAT EFFECT. THE MEDICATION IS NOT IN THE PATIENTS ROOM OR IN THE CASSETTE. I CALLED THE PATIENT SON, AND HE SAID THAT HE DOES NOT HAVE THE MEDICATION. I ASKED HIM TO PLEASE LOOK AROUND IN HIS CAR AND HOUSE ANYWAY, AND HE AGREED TO LOOK. I TOLD MY SPACE AND MISSILE DEFENSE OPERATIONS NADIA IS HAPPENING.
--- NOTE | 2019-02-03 11:15 | NUR ---
SPOKE WITH JOY ROMAN (SON) OF PATIENT VIA PHONE REGARDING MEDICATION THAT HAD BEEN RETURNED TO HIM ON 02/01/19 BY TOYA GERMAN. MR. ROMAN WAS VERY RUDE AND ADVISED HE WAS NOT GIVEN THE MEDICATION AND THAT WE LOST IT AND WE BETTER FIND IT OR REPLACE IT. I THANKED HIM FOR HIS TIME AND ENDED CONVERSATION. APPROXIMATELY 5 MINUTES LATER MR. ROMAN CALLED BACK AND APOLOGIZED FOR HIS RUDENESS AND BEHAVIOR AND THAT HE DID INDEED FIND THE MEDICATION IN HIS POCKET BUT STATED HE FORGOT THAT MONSERRAT HAD GIVEN IT TO HIM AND HE WAS ON HIS WAY BACK TO HOSPITAL TO GIVE US THE MEDICATION AND TO APOLOGIZE TO MONSERRAT AND JUDI AND MYSELF ONCE AGAIN FOR HIS BEHAVIOR.
--- NOTE | 2019-02-03 11:15 | NUR ---
PATIENT SON CALLED BACK AND HE DOES HAVE THE MEDICATION. HE IS BRINGING IT SOON HE CAN GET BACK UP HERE.
--- NOTE | 2019-02-03 11:19 | NUR ---
ACKNOWLEDGED THE CRITICAL LABS ON THIS PATIENT CALLED IN THIS MORNING. REPORTED TO DR CHACON. SECOND DOSE OF POTASSIUM GIVEN PER PROTOCOL.
--- NOTE | 2019-02-03 12:24 | NUR ---
PATIENT WILL START THE JAKAFI TONIGHT FOR THE FIRST 2100 DOSE. THIS MEDICATION IS IN THE CASSETTE NOW.
[2019-02-03 13:56] VITALS: BP 130/57
[2019-02-03 17:02] VITALS: BP 128/58
--- NOTE | 2019-02-03 19:30 | NUR ---
REPORT RECEIVED, WILL CONTINUE POC. PATIENT IS ALERT BUT CONFUSED. SHE EXPLAINED SHE WAS TOLD BY HER DOCTOR THAT SHE DOES NOT NEED HER IV ANYMORE AND SHOULD NOT BE RECEIVING FLUIDS AND THAT SHE WAS GOING HOME IN THE MORNING. INFORMED PATIENT THAT WE HAVE ORDERS FOR FLUIDS TO BE INFUSING AND UNTIL FURTHER ORDERS ARE RECEIVED, FLUIDS WILL REMAIN INFUSING. PATIENT AGREED. ASSISTED PATIENT TO BATHROOM AND BACK TO BED. LISSA ALARM ON. IV TO LT HAND PATENT, INFUSING NS @50ML/HR, DRSG C/D/I. PATIENT DENIES FURTHER NEEDS AT THIS TIME. CL IN REACH, BED LOCKED AND LOWERED. WILL CTM.
[2019-02-03 20:33] VITALS: BP 98/59
[2019-02-04] VITALS (7 sets, daily range): BP systolic 126–137; BP diastolic 57–74
--- NOTE | 2019-02-04 05:57 | NUR ---
AM MEDS ADMINISTERED. PATIENT C/O IV SITE PAIN. INFORMED PATIENT I CAN REMOVED IT BUT ANOTHER ONE WOULD NEED TO BE STARTED. PATIENT BECAME AGITATED AND SAID SHE ABSOLUTELY WILL NOT HAVE ANOTHER IV AND THAT SHE IS LEAVING TODAY. EXPLAINED THE IMPORTANCE OF HAVING IV ACCESS WHILE IN THE HOSPITAL. PATIENT IS CONVINCED SHE DOESN'T NEED ONE AND IS LEAVING. IV FLUIDS PAUSED FOR THE TIME BEING. CALMED PATIENT DOWN. STILL NOT ALLOWING HER IV TO BE RESITED.
[2019-02-04 07:07] LABS: HEMATOCRIT 27.6 % (36.0-48.0); MCH 28.8 pg (26.0-34.0); MCHC 32.6 g/dL (31.0-37.0); MCV 88.5 fL (80.0-100.0); PLATELET COUNT 56 10x3/uL (130-400); RBC 3.12 10x6/uL (4.00-5.40); RDW 18.7 % (11.5-14.5); WBC 81.1 10x3/uL (4.8-10.8)
[2019-02-04 07:32] LABS: ALBUMIN 3.2 g/dL (3.4-5.0); BILIRUBIN - TOTAL 1.08 mg/dL (0.2-1.3); CALCIUM 7.6 mg/dL (8.5-10.1); CARBON DIOXIDE 23.3 mmol/L (21.0-32.0); CREATININE - SERUM 1.2 mg/dL (0.6-1.3); PROTEIN - SERUM 5.9 g/dL (6.4-8.2)
--- NOTE | 2019-02-04 07:33 | NUR ---
REPORT RECIEVED. PT SITTIG AT BED SIDE.3.5L NC PUT BACK ON PT AT THIS TIME. PT HAS A L HAND PIV THAT IS SL. RR EVEN AND UNLABORED. NO DISTRESS NOTED. BED LOCKED AND IN LOWEST POSITION, CALL LIGHT WITHIN REACH WILL CTM.
[2019-02-04 07:34] LABS: POTASSIUM - SERUM 3.3 mmol/L (3.5-5.1)
[2019-02-04 09:34] LABS: LYMPHOCYTES 9 % (15-50); MONOCYTES 36 % (2-11); NEUTROPHILS 22 % (40-80); POIKILOCYTOSIS 2+
[2019-02-04 09:35] LABS: ACANTHOCYTES OCC; ANISOCYTOSIS 1+; CRENATED CELLS OCC; PLATELET ESTIMATE DECREASED; POLYCHROMASIA OCC; SCHISTOCYTES OCC
[2019-02-04 09:36] LABS: ROULEAUX OCC
--- NOTE | 2019-02-04 13:15 | NUR ---
PIV LEAKING AROUND CATH SITE. REMOVED WITH CATH TIP FULLY INTACT. SPOKE TO ESHA ABOUT CHANGING ANTIBIOTICS OVER TO PO. ORDER CHANGED.
--- NOTE | 2019-02-04 14:58 | NUR ---
I have reviewed this patient and I concur with the Shift Assessment completed by the Licensed Practical Nurse today this shift.
--- NOTE | 2019-02-04 19:15 | NUR ---
EVENING ROUNDS COMPLETE, WILL CONTINUE POC. PATIENT IS ALERT BUT PLEASANTLY CONFUSED. PATIENT REQUESTING MEDS AT 1999 SO THAT SHE CAN GO TO SLEEP. NO S/S OF DISTRESS OBSERVED, RR EVEN AND UNLABORED ON 3.5L O2 VIA NC. PATIENT DENIES FURTHER NEEDS AT THIS TIME. CL IN REACH, BED LOCKED AND LOWERED. WILL CTM.
--- NOTE | 2019-02-04 23:20 | NUR ---
NEW ORDERS WERE RECEIVED FOR IV LASIX, CALLED BERKLEY EUGENE TO SEE ABOUT SWITCHING TO PO DUE TO PATIENT NOT HAVING IV ACCESS. VALORIE AGREED, NEW ORDERS RECEIVED FOR PO DOSE OF LASIX.
--- NOTE | 2019-02-05 03:03 | NUR ---
I have reviewed this patient and I concur with the Shift Assessment completed by the Licensed Practical Nurse today this shift.
[2019-02-05 04:00] VITALS: BP 138/73
[2019-02-05 08:03] VITALS: BP 127/68
--- NOTE | 2019-02-05 09:45 | NUR ---
PATIENT RECIEVED FROM PREVIOUS NURSE RESTING IN BED, CONFUSED AND ANXIOUS TO BE DISCHARGED TODAY. CL IN REACH. FALL PRECAUTIONS IN PLACE.
--- NOTE | 2019-02-05 10:51 | NUR ---
PATIENT HAS NOT HAD A FLU SHOT. NO FLU SHOT GIVEN AT DISCHARGE PATIENT IS ON CHEMO MEDS AT THIS TIME.
--- NOTE | 2019-02-05 11:06 | NUR ---
DISCHRGE EDUCATION AND INSTRUCTIONS GIVEN TO PATIENT AND SON WITH UNDERSTANDING VOICED. PATIENTS HOME MEDICAION GIVEN TO SON WHICH HE PLACED IN HIS RIGHT JACKET POCKET. PATIENT TAKEN BY WHEELCHAIR TO PRIVATE CAR WITH VOLUNTEER ASSIST
--- NOTE | 2019-02-06 11:37 | MORECARE ---
CASE MANAGEMENT DISCHARGE SUMMARY PATIENT: GIBRAN ROMAN UNIT: [id number] ADM DATE: 01/30/19 AGE: 84 : 33 SEX: F ROOM/BED: D.0232 AUTHOR: NADIRADOC PHYSICIAN: REFERRING PHYSICIAN: LAKIA LOBATO MD DATE OF SERVICE: 02/06/19 Discharge Plan Patient Name: GIBRAN ROMAN Facility: [facility]:[place] : 1935 Planned Disposition: Home Anticipated Discharge Date: 02/05/19 Discharge Date: 02/05/2019 Expected LOS: 6 Initial Reviewer: [email or web address] Initial Review Date: 02/01/2019 Generated: 02/06/19 12:36 pm Comments DCP- Discharge Planning Updated by [email or web address]: Dev Carrion on 02/06/19 10:[address] Patient Name: GIBRAN ROMAN Encounter No: [id number] : 1935 Primary Insurance: MEDICARE A & B Anticipated DC Date: 02-05-2019 Planned Disposition: Home LATE ENTRY FROM 02-05-19, 1010 HOURS DCP follow-up note: CM MET WITH PT IN ROOM TO DISCUSS DISCHARGE NEEDS AND PLANNING. CM DISCUSSED AVAILABILITY OF HOME HEALTH, REHAB SERVICES AND MEDICAL EQUIPMENT. PT DENIES DISCHARGE NEEDS. FAMILY TRANSPORT HOME AT DISCHARGE. IMPORTANT MESSAGE FROM MEDICARE PROVIDED AND EXPLAINED. PALMER Caldwell DCP- Discharge Planning Updated by [email or web address]: Geovanna Mendiola on 02/01/19 3:[address] Patient Name: GIBRAN ROMAN Admission Status: ER Accout number: [id number] Admission Date: 01-30-2019 : 1935 Admission Diagnosis: Attending: CHRIS Current LOS: 2 Anticipated DC Date: Planned Disposition: Primary Insurance: MEDICARE A & B Discharge Planning Comments: CM met with patient at bedside after explaining CM role and obtaining verbal consent. CM discussed availability / needs of home health, REHAB and medical equipment. STATES NO NEEDS AND HAS GROUP CARE WORKER. STATES SHE PLANS TO DC SATURDAY. CM TO FOLLOW. Still Runner: Geovanna Mendiola DCPIA - Discharge Planning Initial Assessment Updated by [id number]: Geovanna Mendiola on 02/01/19 4:04 pm * Is the patient Alert and Oriented? Yes * PCP NO * Pharmacy [facility] * ADLs Independent * Other Equipment CANE * Community resources currently utilized Private Duty Care * Additional services required to return to the preadmission environment? No * Can the patient safely return to the preadmission environment? Yes * Has this patient been hospitalized within the prior 30 days at any hospital? No Coverage Notice Reviewer: [id number] Evelin Carrion Notice Issued Date-Time: 02/05/2019 10:10 Notice Type: IM Discharge Notice Notice Delivered To: Patient Relationship to Patient: Panelbeater Name: Delivery Method: HAND - Hand Delivered Genesis Days: Prior Verbal Notification: Recipient Understood Notice: Yes Recipient Signature: Yes Med Rec Note Co-signed by Attending: Coverage Notice Comment: Last DP export: 02/01/19 3:11 p Patient Name: GIBRAN ROMAN Page 23540 at 1137 All edits/amendments must be made on the electronic document DICTATION DATE: 02/06/19 1136 ROLLER MECHANIC: KEVIN 02/06/19 1136 RPT#: [id number] DC DATE:02/05/19 STATUS: DIS IN [facility] [address] [place] [address] END OF REPORT
== END 2019-02-05 11:12 | disposition home or self-care (01) | DRG 70 ==
LOC: D.ER 19:45 → OBSVTIME 22:36 → D.M2 22:36
PROVIDERS: Family Medicine; ADMIT Family Medicine; ATTEND Family Medicine
DX: G93.41 Metabolic encephalopathy (principal); J96.01 Acute respiratory failure with hypoxia; J69.0 Pneumonitis due to inhalation of food and vomit; N39.0 Urinary tract infection, site not specified; N17.9 Acute kidney failure, unspecified; C93.10 Chronic myelomonocytic leukemia not having achieved remission; D75.81 Myelofibrosis; E86.0 Dehydration; D64.81 Anemia due to antineoplastic chemotherapy; D69.6 Thrombocytopenia, unspecified; E78.5 Hyperlipidemia, unspecified; I10 Essential (primary) hypertension; E03.9 Hypothyroidism, unspecified; Z95.0 Presence of cardiac pacemaker; F41.8 Other specified anxiety disorders

== ENCOUNTER 2019-11-09 12:32 | Inpatient (IN) | payer MEDICARE, OTHER ==
[~2019-11-09] VITALS: Ht 175.3 cm; Wt 65.3 kg
[2019-11-09] VITALS (8 sets, daily range): BP systolic 131–147; BP diastolic 49–68; BMI 21.3
[~2019-11-09 12:32] MED LIST changes: +JAKAFI5 MG PO
[2019-11-09 13:33] LABS: CALC OSMOLALITY 287 mosm/kg (275-300); CALCIUM 8.4 mg/dL (8.5-10.1); CARBON DIOXIDE 17.2 mmol/L (21.0-32.0); CHLORIDE - SERUM 104 mmol/L (98-107); GLUCOSE 139 mg/dL (74-106); POTASSIUM - SERUM 3.9 mmol/L (3.5-5.1); SODIUM 139 mmol/L (136-145); UREA NITROGEN 36 mg/dL (7-18); eGFR NON AFRICAN AMERICAN 16 mL/min (90-120)
[2019-11-09 13:34] LABS: HEMATOCRIT 29.2 % (36.0-48.0); HEMOGLOBIN 9.7 g/dL (12-16); MCHC 33.2 g/dL (31.0-37.0); MCV 90.4 fL (80.0-100.0); PLATELET COUNT 111 10x3/uL (130-400); RBC 3.23 10x6/uL (4.00-5.40); RDW 21.3 % (11.5-14.5); WBC 264.6 10x3/uL (4.8-10.8)
[2019-11-09 13:38] LABS: ALBUMIN 4.3 g/dL (3.4-5.0); ALKALINE PHOSPHATASE 78 U/L (30-120); ALT (SGPT) 34 U/L (10-68); AMYLASE - SERUM 93 U/L (25-115); BILIRUBIN - TOTAL 1.08 mg/dL (0.2-1.3); LIPASE 106 U/L (73-393); PROTEIN - SERUM 6.2 g/dL (6.4-8.2)
[2019-11-09 13:39] LABS: TROPONIN-I < 0.017 ng/mL (0.000-0.060)
--- NOTE | 2019-11-09 14:17 | NUR ---
ATTEMPTED TO I&O CATH, NO URINE OBTAINED. INFORMED ER MD. INCREASED FLUID TO BOLUS PER VERBAL ORDER.
[2019-11-09 14:46] LABS: LYMPHOCYTES 5 % (15-50); MONOCYTES 46 % (2-11); NEUTROPHILS 33 % (40-80); PLATELET ESTIMATE DECREASED
[2019-11-09 14:48] LABS: POIKILOCYTOSIS 1+
[2019-11-09 16:17] LABS: APTT 53.5 SECONDS (22.8-39.4); INR 1.94 (0.85-1.17); PROTIME 21.9 SECONDS (11.6-15.0)
--- NOTE | 2019-11-09 17:28 | NUR ---
PROTONIX NOT GIVEN PYXIS SHOWS NOT AVAILABLE UNTIL TOMORROW 0600.
--- NOTE | 2019-11-09 17:30 | NUR ---
BEDSIDE BLADDER SCAN PERFORMED: 207ML NOTED.
--- NOTE | 2019-11-09 17:45 | NUR ---
BARRETT CATHETER PLACED USING STERILE TECHNIQUE. 14f CATHETER APPLIED TO CATH KIT D/T UNABLE TO PLACE LARGER 16f.
[2019-11-09 17:47] LABS: BACTERIA MANY /hpf (NONE SEEN); BILIRUBIN NEGATIVE (NEGATIVE); EPITHELIAL CELLS 0-5 /hpf (0-5); KETONE NEGATIVE (NEGATIVE); NITRITE POSITIVE (NEGATIVE); UROBILINOGEN NORMAL (NORMAL)
--- NOTE | 2019-11-09 19:15 | NUR ---
REPORT TO KETAN MATTHEW.
--- NOTE | 2019-11-09 19:20 | NUR ---
IV CONTINUES TO INFUSE ON TRANSFER TO FLOOR. NS 125ML/HR.
[2019-11-09] MEDS ORDERED: CELEXA20 MG PO (23:21)
[2019-11-09] MEDS ORDERED: HYDROXYUREA500 MG PO (23:22)
[2019-11-10 04:00] VITALS: BP 99/44
--- NOTE | 2019-11-10 04:43 | NUR ---
I have reviewed this patient and I concur with the Shift Assessment completed by the Licensed Practical Nurse today this shift.
[2019-11-10 05:23] LABS: HEMATOCRIT 27.5 % (36.0-48.0); HEMOGLOBIN 8.7 g/dL (12-16); MCH 29.5 pg (26.0-34.0); MCHC 31.6 g/dL (31.0-37.0); MCV 93.2 fL (80.0-100.0); PLATELET COUNT 57 10x3/uL (130-400); RBC 2.95 10x6/uL (4.00-5.40); RDW 21.7 % (11.5-14.5); WBC 259.8 10x3/uL (4.8-10.8)
[2019-11-10 05:50] LABS: ALBUMIN 3.5 g/dL (3.4-5.0); BILIRUBIN - TOTAL 1.08 mg/dL (0.2-1.3); CALCIUM 7.5 mg/dL (8.5-10.1); MAGNESIUM - SERUM 1.7 mg/dL (1.8-2.4); POTASSIUM - SERUM 3.9 mmol/L (3.5-5.1); PROTEIN - SERUM 5.4 g/dL (6.4-8.2); VANCOMYCIN - RANDOM 9.7 ug/mL (10.0-20.0)
[2019-11-10 05:53] LABS: ANION GAP 26.4 mmol/L (8-16); CARBON DIOXIDE 12.5 mmol/L (21.0-32.0); CREATININE - SERUM 4.2 mg/dL (0.6-1.3)
--- NOTE | 2019-11-10 07:28 | NUR ---
PT LAYING SUPINE, RR EVEN AND UNLABORED. DENIES NEEDS OR PAIN AT THIS TIME. CALL LIGHT WITHIN REACH. BED IN LOWEST POSITION. WILL CONTINUE TO MONITOR.
[2019-11-10 07:50] VITALS: BP 121/45
[2019-11-10 11:15] VITALS: BMI 21.2
[2019-11-10 11:33] VITALS: Ht 175.3 cm; Wt 65.3 kg
[2019-11-10 11:46] VITALS: BP 120/44
[2019-11-10 12:45] LABS: ANISOCYTOSIS 1+; EOSINOPHILS 1 % (0-7); LYMPHOCYTES 12 % (15-50); MONOCYTES 53 % (2-11); NEUTROPHILS 12 % (40-80); PLATELET ESTIMATE DECREASED; SCHISTOCYTES OCC
[2019-11-10 12:46] LABS: ACANTHOCYTES OCC; CRENATED CELLS OCC
[2019-11-10 16:17] LABS: BILIRUBIN NEGATIVE (NEGATIVE); KETONE NEGATIVE (NEGATIVE); NITRITE NEGATIVE (NEGATIVE); UROBILINOGEN NORMAL (NORMAL)
[2019-11-10 16:24] LABS: BACTERIA MODERATE /hpf (NONE SEEN); EPITHELIAL CELLS 0-5 /hpf (0-5); WHITE CELLS - URINE >50 /hpf (0-5)
--- NOTE | 2019-11-10 18:34 | NUR ---
TELEMETRY SR. CALL LIGHT IN REACH. WILL CONT. PLAN OF CARE.
--- NOTE | 2019-11-10 20:21 | NUR ---
RECIEVED UP IN BED WITH EYES CLOSED. EASILY AROUSES WITH VERBAL STIMULI. ORIENTED TO NAME ONLY. F/C IN PLACE FOR NEUROGENIC BLADDER. O2@ 2 LITERS PER N/C. IV TO RT WRIST WITH NS AT 25CC/HR. PACEMAKER TO LT CHEST. DENIES ANY NEEDS AT THIS TIME.
[2019-11-10 20:43] VITALS: BP 127/81
[2019-11-11] VITALS: BP 131/61
[2019-11-11 04:00] VITALS: BP 119/60
[2019-11-11 07:12] LABS: HEMATOCRIT 24.7 % (36.0-48.0); HEMOGLOBIN 7.8 g/dL (12-16); MCH 28.7 pg (26.0-34.0); MCHC 31.6 g/dL (31.0-37.0); MCV 90.8 fL (80.0-100.0); PLATELET COUNT 94 10x3/uL (130-400); RBC 2.72 10x6/uL (4.00-5.40); RDW 21.6 % (11.5-14.5); WBC 178.9 10x3/uL (4.8-10.8)
[2019-11-11 07:24] LABS: ALBUMIN 3.2 g/dL (3.4-5.0); ANION GAP 23.1 mmol/L (8-16); BILIRUBIN - TOTAL 0.88 mg/dL (0.2-1.3); CALCIUM 7.2 mg/dL (8.5-10.1); CARBON DIOXIDE 14.6 mmol/L (21.0-32.0); CREATININE - SERUM 5.3 mg/dL (0.6-1.3); MAGNESIUM - SERUM 1.8 mg/dL (1.8-2.4); POTASSIUM - SERUM 3.7 mmol/L (3.5-5.1); PROTEIN - SERUM 5.2 g/dL (6.4-8.2); VANCOMYCIN - RANDOM 15.7 ug/mL (10.0-20.0)
[2019-11-11 07:42] VITALS: BP 129/57
[2019-11-11 07:49] LABS: LYMPHOCYTES 26 % (15-50); MONOCYTES 28 % (2-11); NEUTROPHILS 28 % (40-80); PLATELET ESTIMATE DECREASED
--- NOTE | 2019-11-11 08:40 | NUR ---
SET PATIENTS MORNING TRAY UP AND COULD NOT FEED PATIENT . WOULD NOT TAKE A BITE, KEPT RAMBLING INCOHERANT WORDS. BROUGHT MORNING MEDICATIONS TO ROOM AND SAME RESULT, WOULD NOT AND COULD NOT SWALLOW A PILL. ONLY WORD I COULD UNDERSTAND WAS CANCER.
--- NOTE | 2019-11-11 10:44 | MORECARE ---
CASE MANAGEMENT DISCHARGE SUMMARY PATIENT: GIBRAN TREJO UNIT: [id number] ADM DATE: 11/09/19 AGE: 84 : 33 SEX: F ROOM/BED: D.2107 AUTHOR: BERNARDINO WADDELL PHYSICIAN: REFERRING PHYSICIAN: LAKIA LOBATO MD DATE OF SERVICE: 11/11/19 Discharge Plan Patient Name: GIBRAN TREJO [facility] [facility] 1935 Planned Disposition: Hospice Medical Facility Anticipated Discharge Date: Discharge Date: Expected LOS: Initial Reviewer: [email or web address] Initial Review Date: 11/11/2019 Generated: 11/11/19 11:44 am DCPIA - Discharge Planning Initial Assessment Updated by [email or web address]: Evelia Stevenson on 11/11/19 10:41 am * Is the patient Alert and Oriented? Yes * How many steps to enter\exit or inside your home? 6/0 * PCP Dr. Gunn * [facility] * Preadmission Environment Home Alone * ADLs Partial Dependent * Partial ADLs (Assistance needed) Ambulation * Equipment Cane Walker * List name and contact numbers for known caregivers / representatives who currently or will assist patient after discharge: Tyrell Trejo [facility] - [phone] * Verbal permission to speak to the caregivers and representatives has been obtained from the patient. Yes * Community resources currently utilized Private Duty Care * Additional services required to return to the preadmission environment? Yes * Can the patient safely return to the preadmission environment? Yes * Has this patient been hospitalized within the prior 30 days at any hospital? No Patient Name: GIBRAN TREJO Page 44670 at 1044 All edits/amendments must be made on the electronic document DICTATION DATE: 11/11/19 1044 MILK DELIVERY DRIVER: KEVIN 11/11/19 1044 RPT#: [id number] DC DATE: STATUS: ADM IN [facility] [address] [place] [address] END OF REPORT
--- NOTE | 2019-11-11 10:53 | MORECARE ---
CASE MANAGEMENT DISCHARGE SUMMARY PATIENT: GIBRAN ROMAN UNIT: [id number] ADM DATE: 11/09/19 AGE: 84 : 33 SEX: F ROOM/BED: D.5165 AUTHOR: NADIRADOC PHYSICIAN: REFERRING PHYSICIAN: LAKIA LOBATO MD DATE OF SERVICE: 11/11/19 Discharge Plan Patient Name: GIBRAN ROMAN Facility: [facility]:[place] : 1935 Planned Disposition: Hospice Medical Facility Anticipated Discharge Date: Discharge Date: Expected LOS: Initial Reviewer: [email or web address] Initial Review Date: 11/11/2019 Generated: 11/11/19 11:53 am Comments DCP- Discharge Planning Updated by [email or web address]: Evelia Stevenson on 11/11/19 9:[address] Patient Name: GIBRAN ROMAN Admission Status: ER Accout number: [id number] Admission Date: 11-09-2019 : 1935 Admission Diagnosis:UNSPECIFIED ABDOMINAL PAIN Attending: CHRIS Current LOS: 2 Anticipated DC Date: Planned Disposition: Hospice Medical Facility Primary Insurance: MEDICARE A & B Discharge Planning Comments: CM received an order for Hospice. I was notified not to speak to patient in the room about hospice, but to call his son. I called his son and he met me on the unit to discuss hospice. I provided him with a CHAZ form and explained home hospice vs inpatient hospice. I don't see her meeting criteria for inpatient hospice at this time. Patient has a private care given, but son states he has suspended that at this time. Patient lives alone with her dog, son lives behind her. She may be a candidate for rehab for strengthening prior to discharge home if that is what they decide. Son states he will call me tomorrow after his sister has flown in to discuss more in detail. CM will continue to follow and assist with discharge planning/needs. Pig Casting Machine Operator: Evelia Stevenson DCPIA - Discharge Planning Initial Assessment Updated by [email or web address]: Evelia Stevenson on 11/11/19 10:41 am * Is the patient Alert and Oriented? Yes * How many steps to enter\exit or inside your home? 6/0 * PCP Dr. Gunn * Pharmacy [facility] [address] * Preadmission Environment Home Alone * ADLs Partial Dependent * Partial ADLs (Assistance needed) Ambulation * Equipment Cane Walker * List name and contact numbers for known caregivers / representatives who currently or will assist patient after discharge: Tyrell jama - [phone] * Verbal permission to speak to the caregivers and representatives has been obtained from the patient. Yes * Community resources currently utilized Private Duty Care * Additional services required to return to the preadmission environment? Yes * Can the patient safely return to the preadmission environment? Yes * Has this patient been hospitalized within the prior 30 days at any hospital? No Last DP export: 11/11/19 9:44 am Patient Name: GIBRAN ROMAN Page 46811 at 1053 All edits/amendments must be made on the electronic document DICTATION DATE: 11/11/191052 TEST DESK TROUBLE LOCATOR: KEVIN 11/11/19 1053 RPT#: [id number] [place] DATE: STATUS: ADM IN [facility] [address] [place] [address] END OF REPORT
[2019-11-11 11:29] VITALS: BP 116/56
[2019-11-11 12:10] LABS: CREATININE - URINE 111.3 mg/dL (Not Estab.); MICROALBUMIN - URINE 992.3 ug/mL (Not Estab.)
[2019-11-11 15:30] VITALS: BP 122/58
--- NOTE | 2019-11-11 19:30 | NUR ---
PT IN BED, AAO X 1, NO DISTRESS NOTED, RESP EVEN AND UNLABORED. NO DISTRESS NOTED, CL IN REACH, SR UP X 2.
[2019-11-11 21:11] VITALS: BP 121/56
[2019-11-12] VITALS: BP 116/54
[2019-11-12 04:00] VITALS: BP 113/55
[2019-11-12 07:04] LABS: ALBUMIN 3.2 g/dL (3.4-5.0); BILIRUBIN - TOTAL 0.77 mg/dL (0.2-1.3); CALCIUM 7.2 mg/dL (8.5-10.1); CARBON DIOXIDE 14.3 mmol/L (21.0-32.0); PROTEIN - SERUM 5.6 g/dL (6.4-8.2); VANCOMYCIN - RANDOM 23.1 ug/mL (10.0-20.0)
[2019-11-12 07:07] LABS: ANION GAP 23.2 mmol/L (8-16); POTASSIUM - SERUM 4.5 mmol/L (3.5-5.1)
--- NOTE | 2019-11-12 07:10 | NUR ---
RECEIVE BEDSIDE SHIFT REPORT. RESTING IN BED WITH EYES CLOSED. NO SIGNS OF DISTRESS. WILL CONTINUE PLAN OF CARE AND SAFETY PRECAUTIONS.
[2019-11-12 07:27] LABS: BASOPHILS 0.8 % (0-2); EOSINOPHILS 0 % (0-7); HEMATOCRIT 26.7 % (36.0-48.0); HEMOGLOBIN 8.7 g/dL (12-16); MCH 29.6 pg (26.0-34.0); MCHC 32.6 g/dL (31.0-37.0); MCV 90.8 fL (80.0-100.0); PLATELET COUNT 81 10x3/uL (130-400); RBC 2.94 10x6/uL (4.00-5.40); RDW 21.5 % (11.5-14.5); WBC 133.1 10x3/uL (4.8-10.8)
[2019-11-12 08:01] VITALS: BP 126/59
--- NOTE | 2019-11-12 08:22 | NUR ---
TRIED TO ADMINISTER MEDS TO PATIENT, CONFUSED. CRUSHED MEDICATIONS WITH APPLESAUCE AND WOULD NOT TAKE THEM. THE CHEMO MED CANNOT BE ADMINISTERED DUE TO PATIENT NOT SWALLOWING.
[2019-11-12 10:12] LABS: URIC ACID - 24HR (TOTAL) 105.8 mg/24 hr (88.9-568.5); URIC ACID - 24HR (URINE) 24.9 mg/dL (Not Estab.)
--- NOTE | 2019-11-12 12:43 | NUR ---
Nutrition Follow-up: Pt sleeping soundly this AM. Breakfast appeared untouched. Noted hospice consult. Diet: Cardiac, Ensure TID PO intake: 0% x 3 yesterday No new wt; last wt: 144# (11/09) Labs noted: Ca 7.2, Alb 3.2 Meds noted: Phoslo, Protonix, electrolyte protocol -Monitor wt; noted daily wts ordered. -RD following & available to assist as needed.
[2019-11-12 13:28] VITALS: BP 119/59
--- NOTE | 2019-11-12 15:47 | MORECARE ---
CASE MANAGEMENT DISCHARGE SUMMARY PATIENT: GIBRAN TREJO UNIT: [id number] ADM DATE: 11/09/19 AGE: 84 : 33 SEX: F ROOM/BED: D.6751 AUTHOR: NADIRADOC PHYSICIAN: REFERRING PHYSICIAN: LAKIA LOBATO MD DATE OF SERVICE: 11/12/19 Discharge Plan Patient Name: GIBRAN TREJO Facility: [facility]:[place] : 1935 Planned Disposition: Hospice Medical Facility Anticipated Discharge Date: Discharge Date: Expected LOS: Initial Reviewer: [email or web address] Initial Review Date: 11/11/2019 Generated: 11/12/19 4:46 pm Comments DCP- Discharge Planning Updated by [email or web address]: Evelia Stevenson on 11/11/19 9:[address] Patient Name: GIBRAN TREJO Admission Status: ER Accout number: [id number] Admission Date: 11-09-2019 : 1935 Admission Diagnosis:UNSPECIFIED ABDOMINAL PAIN Attending: CHRIS Current LOS: 2 Anticipated DC Date: Planned Disposition: Hospice Medical Facility Primary Insurance: MEDICARE A & B Discharge Planning Comments: CM received an order for Hospice. I was notified not to speak to patient in the room about hospice, but to call his son. I called his son and he met me on the unit to discuss hospice. I provided him with a CHAZ form and explained home hospice vs inpatient hospice. I don't see her meeting criteria for inpatient hospice at this time. Patient has a private care given, but son states he has suspended that at this time. Patient lives alone with her dog, son lives behind her. She may be a candidate for rehab for strengthening prior to discharge home if that is what they decide. Son states he will call me tomorrow after his sister has flown in to discuss more in detail. CM will continue to follow and assist with discharge planning/needs. Wood Processing Worker: Evelia Stevenson DCPIA - Discharge Planning Initial Assessment Updated by [email or web address]: Evelia Stevenson on 11/11/19 10:41 am * Is the patient Alert and Oriented? Yes * How many steps to enter\exit or inside your home? 6/0 * PCP Dr. Gunn * Pharmacy [facility] [address] * Preadmission Environment Home Alone * ADLs Partial Dependent * Partial ADLs (Assistance needed) Ambulation * Equipment Cane Walker * List name and contact numbers for known caregivers / representatives who currently or will assist patient after discharge: Tyrell Trejo - evita - [phone] * Verbal permission to speak to the caregivers and representatives has been obtained from the patient. Yes * Community resources currently utilized Private Duty Care * Additional services required to return to the preadmission environment? Yes * Can the patient safely return to the preadmission environment? Yes * Has this patient been hospitalized within the prior 30 days at any hospital? No External Providers External Provider: [facility] gail(provides inp Next Contact Date: Service Request Date: Service Type: Resolution: Reviewer: Comments: Last DP export: 11/11/19 9:53 am Patient Name: GIBRAN TREJO Page [id number] at 1547 All edits/amendments must be made on the electronic document DICTATION DATE: 11/12/19 154 PICKLE SORTER: KEVIN 11/12/191546 RPT#: [id number] DC DATE: STATUS: ADM IN [facility] [address] [place] [address] END OF REPORT
--- NOTE | 2019-11-12 15:54 | MORECARE ---
CASE MANAGEMENT DISCHARGE SUMMARY PATIENT: GIBRAN TREJO UNIT: [id number] ADM DATE: 11/09/19 AGE: 84 : 33 SEX: F ROOM/BED: D.3588 AUTHOR: NADIRADOC PHYSICIAN: REFERRING PHYSICIAN: LAKIA LOBATO MD DATE OF SERVICE: 11/12/19 Discharge Plan Patient Name: GIBRAN TREJO Facility: [facility]:[place] : 1935 Planned Disposition: Hospice Medical Facility Anticipated Discharge Date: Discharge Date: Expected LOS: Initial Reviewer: [email or web address] Initial Review Date: 11/11/2019 Generated: 11/12/19 4:54 pm Comments DCP- Discharge Planning Updated by [email or web address]: Evelia Stevenson on 11/12/19 2:[address] Received a call from Joy Trejo that his sister is here and they would like to consult [facility]. I placed a call to Max with [facility] and informed him that family would like to meet tomorrow morning at 9am here at the hospital outside his mother's room. Max states he will be here at 9am. Clinical faxed to [facility]. CM will continue to follow and assist with discharge planning/needs. DCP- Discharge Planning Updated by [email or web address]: Evelia Stevenson on 11/11/19 9:[address] Patient Name: GIBRAN TREJO Admission Status: ER Accout number: [id number] Admission Date: 11-09-2019 : 1935 Admission Diagnosis:UNSPECIFIED ABDOMINAL PAIN Attending: CHRIS Current LOS: 2 Anticipated DC Date: Planned Disposition: Hospice Medical Facility Primary Insurance: MEDICARE A & B Discharge Planning Comments: CM received an order for Hospice. I was notified not to speak to patient in the room about hospice, but to call his son. I called his son and he met me on the unit to discuss hospice. I provided him with a CHAZ form and explained home hospice vs inpatient hospice. I don't see her meeting criteria for inpatient hospice at this time. Patient has a private care given, but son states he has suspended that at this time. Patient lives alone with her dog, son lives behind her. She may be a candidate for rehab for strengthening prior to discharge home if that is what they decide. Son states he will call me tomorrow after his sister has flown in to discuss more in detail. CM will continue to follow and assist with discharge planning/needs. Panelboard Assembler: Evelia Stevenson DCPIA - Discharge Planning Initial Assessment Updated by [email or web address]: Evelia Stevenson on 11/11/19 10:41 am * Is the patient Alert and Oriented? Yes * How many steps to enter\exit or inside your home? 6/0 * PCP Dr. Gunn * Pharmacy [facility] [address] * Preadmission Environment Home Alone * ADLs Partial Dependent * Partial ADLs (Assistance needed) Ambulation * Equipment Cane Walker * List name and contact numbers for known caregivers / representatives who currently or will assist patient after discharge: Joy Trejo - son - [phone] * Verbal permission to speak to the caregivers and representatives has been obtained from the patient. Yes * Community resources currently utilized Private Duty Care * Additional services required to return to the preadmission environment? Yes * Can the patient safely return to the preadmission environment? Yes * Has this patient been hospitalized within the prior 30 days at any hospital? No Coverage Notice Reviewer: [id number] - Evelia Stevenson Notice Issued Date-Time: 11/12/2019 15:47 Notice Type: Patient Choice Letter Notice Delivered To: Family Member Relationship to Patient: Son Application Operations Engineer Name: JOY TREJO Delivery Method: HAND - Hand Delivered Genesis Days: Prior Verbal Notification: Recipient Understood Notice: Yes Recipient Signature: Yes Med Rec Note Co-signed by Attending: Coverage Notice Comment: [facility]AZ FOR [facility] Last DP export: 11/12/19 2:47 p Patient Name: GIBRAN TREJO Page 25861 at 1554 All edits/amendments must be made on the electronic document DICTATION DATE: 11/12/19 1556 TECHNOLOGIST DEVELOPMENT: KEVIN 11/12/19 922 RPT#: [id number] DC DATE: STATUS: ADM IN [facility] [address] [place] [place] [address] END OF REPORT
[2019-11-12 16:50] VITALS: BP 125/58
--- NOTE | 2019-11-12 19:00 | NUR ---
VSS. PT IS LETHARGIC, AROUSES WITH VERBAL STIMULI BUT FALLS RIGHT BACK TO SLEEP. SHE IS ON 2.5L NC AND O2 SAT 96%. SHE HAD A LARGE LOOSE BOWEL MOVEMENT. CLEANED HER UP AND LINENS CHANGED. SIDE RAILS UP X 3, BED LOW AND BED ALARM ON FOR SAFETY. WILL CONTINUE TO MONITOR.
[2019-11-12 21:26] VITALS: BP 120/57
[2019-11-13] VITALS: BP 129/67
[2019-11-13 04:02] VITALS: BP 134/66
[2019-11-13 07:01] LABS: ALBUMIN 3.3 g/dL (3.4-5.0); ANION GAP 27.9 mmol/L (8-16); BILIRUBIN - TOTAL 0.9 mg/dL (0.2-1.3); CALCIUM 7.3 mg/dL (8.5-10.1); CARBON DIOXIDE 14.4 mmol/L (21.0-32.0); CREATININE - SERUM 6.9 mg/dL (0.6-1.3); HEMATOCRIT 29.1 % (36.0-48.0); HEMOGLOBIN 9.3 g/dL (12-16); MCH 29.6 pg (26.0-34.0); MCV 92.7 fL (80.0-100.0); PLATELET COUNT 72 10x3/uL (130-400); POTASSIUM - SERUM 4.3 mmol/L (3.5-5.1); PROTEIN - SERUM 5.4 g/dL (6.4-8.2); RBC 3.14 10x6/uL (4.00-5.40); RDW 21.5 % (11.5-14.5); VANCOMYCIN - RANDOM 18.2 ug/mL (10.0-20.0); WBC 161.8 10x3/uL (4.8-10.8)
[2019-11-13 07:58] VITALS: BP 119/49
--- NOTE | 2019-11-13 08:18 | NUR ---
AM ROUNDING DONE WITH PATIENT OPENING HER EYES SLOWLY. AX TEMP IS 100.1. UNABLE TO SWALLOW OR TAKE MEDS. PAGED RADHA ZAPIEN FOR TYLENOL SUPP, STATES THE WANTS TO WAIT FAMILY IS MEETING THIS AM FOR HOSPICE CONSULT. BARRETT CATH PATIENT WITH CLEAR URINE. LEFT PACEMAKER SEEN. ON 2.5 L PER NC. RIGHT WRIST SEEN PIV WITH NS INFUSING AT 10 CC/HR. LABS ARE ELEVATED. NO FAMILY PRESENT AT THIS TIME.
--- NOTE | 2019-11-13 09:27 | NUR ---
COMPLETE BATH AND LINEN CHANGE DONE FOR INCONT. OF STOOL. REDNESS SEEN TO BOTTOM. PROPPED TO RIGHT SIDE WITH PILLOW FOR COMFORT AND PILLOW BETWEEN LEGS.
--- NOTE | 2019-11-13 11:20 | NUR ---
TURNED TO LEFT SIDE WITH PILLOW FOR COMFORT BEHIND BACK AND BETWEEN LEGS. FAMILY AT BEDSIDE.
[2019-11-13 11:53] VITALS: BP 118/51
--- NOTE | 2019-11-13 12:03 | NUR ---
TOYA DE SOUZA WITH HOSPICE HERE FOR EVDENICE.
[2019-11-13 12:12] LABS: LYMPHOCYTES 9 % (15-50); MONOCYTES 43 % (2-11); NEUTROPHILS 33 % (40-80); PLATELET ESTIMATE DECREASED; SMUDGE CELLS OCC
[2019-11-13 12:13] LABS: ANISOCYTOSIS OCC; POIKILOCYTOSIS OCC
--- NOTE | 2019-11-13 13:02 | NUR ---
SON, QUEENIE GARDNER WANTS PATIENT HAS DNR STATUS. I CALLED RADHA MEEHAN AND TOLD HIM THIS. HE STATES HE WILL PLACE THE ORDER. I CALLED INTO [facility] IN ADMIN. FOR APPROVAL FOR 2 PEOPLE TO BE IN THE ROOM. GIVEN.
--- NOTE | 2019-11-13 13:29 | NUR ---
REPOSTIOINED TO BACK PER TURN SCHEDULE. CLEANED AGAIN WITH INCONT. OF STOOL.
--- NOTE | 2019-11-13 14:37 | MORECARE ---
CASE MANAGEMENT DISCHARGE SUMMARY PATIENT: GIBRAN TREJO UNIT: [id number] ADM DATE: 11/09/19 AGE: 84 : 33 SEX: F ROOM/BED: D.210 AUTHOR: NADIRA,DOC PHYSICIAN: REFERRING PHYSICIAN: LAKIA LOBATO MD DATE OF SERVICE: 11/13/19 Discharge Plan Patient Name: GIBRAN TREJO Facility: [facility]:[place] : 1935 Planned Disposition: Hospice Medical Facility Anticipated Discharge Date: Discharge Date: Expected LOS: Initial Reviewer: [email or web address] Initial Review Date: 11/11/2019 Generated: 11/13/19 3:37 pm Comments DCP- Discharge Planning Updated by [email or web address]: Evelia Elva on 11/13/19 1:[address] Eleonora with [facility] assessed patient. She does not meet inpatient criteria today. Eleonora states they will reassess over the weekend to see if she meets GIP. If she has any deterioration of her condition, nurse may call [facility] to reassess at any time (any oxygen needs, pain medication needs, vs deterioration). [facility] - [phone] DCP- Discharge Planning Updated by [email or web address]: Evelia Elva on 11/12/19 2:[address] Received a call from Joy Trejo that his sister is here and they would like to consult [facility]. I placed a call to Max with [facility] and informed him that family would like to meet tomorrow morning at 9am here at the hospital outside his mother's room. Max states he will be here at 9am. Clinical faxed to [facility]. CM will continue to follow and assist with discharge planning/needs. DCP- Discharge Planning Updated by [id number]: Evelia Menesesben on 11/11/19 9:[address] Patient Name: GIBRAN TREJO Admission Status: ER Accout number: [id number] Admission Date: 11-09-2019 : 1935 Admission Diagnosis:UNSPECIFIED ABDOMINAL PAIN Attending: CHRIS Current LOS: 2 Anticipated DC Date: Planned Disposition: Hospice Medical Facility Primary Insurance: MEDICARE A & B Discharge Planning Comments: CM received an order for Hospice. I was notified not to speak to patient in the room about hospice, but to call his son. I called his son and he met me on the unit to discuss hospice. I provided him with a CHAZ form and explained home hospice vs inpatient hospice. I don't see her meeting criteria for inpatient hospice at this time. Patient has a private care given, but son states he has suspended that at this time. Patient lives alone with her dog, son lives behind her. She may be a candidate for rehab for strengthening prior to discharge home if that is what they decide. Son states he will call me tomorrow after his sister has flown in to discuss more in detail. CM will continue to follow and assist with discharge planning/needs. Crm Marketing Executive: Evelia Stevenson DCPIA - Discharge Planning Initial Assessment Updated by [id number]: Evelia Stevenson on 11/11/19 10:41 am * Is the patient Alert and Oriented? Yes * How many steps to enter\exit or inside your home? 6/0 * PCP Dr. Gunn * Pharmacy [facility] on [address] * Preadmission Environment Home Alone * ADLs Partial Dependent * Partial ADLs (Assistance needed) Ambulation * Equipment Cane Walker * List name and contact numbers for known caregivers / representatives who currently or will assist patient after discharge: Joy Trejo - son - [phone] * Verbal permission to speak to the caregivers and representatives has been obtained from the patient. Yes * Community resources currently utilized Private Duty Care * Additional services required to return to the preadmission environment? Yes * Can the patient safely return to the preadmission environment? Yes * Has this patient been hospitalized within the prior 30 days at any hospital? No Coverage Notice Reviewer: [id number] - Evelia Stevenson Notice Issued Date-Time: 11/12/2019 15:47 Notice Type: Patient Choice Letter Notice Delivered To: Family Member Relationship to Patient: Son Help Desk Assistant Name: JOY TREJO Delivery Method: HAND - Hand Delivered Genesis Days: Prior Verbal Notification: Recipient Understood Notice: Yes Recipient Signature: Yes Med Rec Note Co-signed by Attending: Coverage Notice Comment: [facility] FOR [facility] Last DP export: 11/12/19 2:54 p Patient Name: GIBRAN TREJO Page [id number] at 1437 All edits/amendments must be made on the electronic document DICTATION DATE: 11/13/191436 ADMINISTRATIVE APPEALS TRIBUNAL MEMBER: KEVIN 11/13/191436 RPT#: [id number] DC DATE: STATUS: ADM IN [facility] [address] [place] [address] END OF REPORT
--- NOTE | 2019-11-13 15:40 | NUR ---
TURNED TO RIGHT SIDE WITH PILLOWS FOR COMFORT. DAUGHTER IS AT BEDSIDE.
[2019-11-13 16:10] VITALS: BP 128/55
--- NOTE | 2019-11-13 17:25 | NUR ---
POSTIONED TO BACK FOR TURN SCHEDULE. PILLOW UNDER BILATERAL LEGS TO KEEP HEEL OFF BED.
--- NOTE | 2019-11-13 20:27 | NUR ---
RECIEVED UP IN BED WITH EYES CLOSED. VERY LETHARGIC. O2@ 2.5 LITERS PER N/C. IV TO RT WRIST 1/2 NS AT 75CC/H. F/C INTACT NO URINE IN BEDSIDE DRAINAGE BAG AT THIS TIME. TELEMETRY IN -PLACE. TURNED AND REPOSTIIONED TO RT SIDE. NO OBVIOUS S/S OF DISTRESS OBSERVED. DOES HAVE A HOSPICE CONSULT.
[2019-11-13 22:07] VITALS: BP 125/53
[2019-11-14 02:07] VITALS: BP 109/59
[2019-11-14 05:51] VITALS: BP 139/52
[2019-11-14 06:22] LABS: HEMATOCRIT 27.6 % (36.0-48.0); HEMOGLOBIN 8.8 g/dL (12-16); MCH 29.3 pg (26.0-34.0); MCHC 31.9 g/dL (31.0-37.0); PLATELET COUNT 22 10x3/uL (130-400); RDW 21.2 % (11.5-14.5); WBC 167.3 10x3/uL (4.8-10.8)
[2019-11-14 06:27] LABS: ALBUMIN 3.1 g/dL (3.4-5.0); BILIRUBIN - TOTAL 0.83 mg/dL (0.2-1.3); CALCIUM 7.2 mg/dL (8.5-10.1); CARBON DIOXIDE 12.4 mmol/L (21.0-32.0); CREATININE - SERUM 7.3 mg/dL (0.6-1.3); MAGNESIUM - SERUM 2.1 mg/dL (1.8-2.4); POTASSIUM - SERUM 3.8 mmol/L (3.5-5.1); PROTEIN - SERUM 5.6 g/dL (6.4-8.2); VANCOMYCIN - RANDOM 26.7 ug/mL (10.0-20.0)
[2019-11-14 06:29] LABS: ANION GAP 25.4 mmol/L (8-16)
[2019-11-14 06:53] LABS: LYMPHOCYTES 9 % (15-50); MONOCYTES 49 % (2-11); NEUTROPHILS 18 % (40-80); PLATELET ESTIMATE DECREASED
[2019-11-14 07:00] VITALS: BP 136/60
[2019-11-14 11:00] VITALS: BP 120/52
[2019-11-14 15:00] VITALS: BP 109/46
--- NOTE | 2019-11-14 17:14 | NUR ---
I have reviewed this patient and I concur with the Shift Assessment completed by the Licensed Practical Nurse today this shift.
--- NOTE | 2019-11-14 19:14 | NUR ---
RECIEVED LAYING IN BED WITH EYES CLOSED. AROUSES TO VERBAL STIMULI. UNABLE TO STAY AWAKE AND DOES NOT ANSWER ANY QUESTIONS. REMAINS TOTAL CARE. F/C INTACT WITH NO URINE TO BEDSIDE DRAINAGE BAG. O2@ 3 LITERS PER N/C. TELEMETRY IN PLACEAND IV TO RT WRIST WITH 1/2 NS AT 75CC/H. NO S/S OF DISTRESS OBSERVED.
--- NOTE | 2019-11-14 20:35 | NUR ---
VERY LETHARGIC. OPEN EYES MOMENTARILY AND THEN GOES BACK TO SLEEP. UNABLE TO TAKE WATER. MEDS NOT GIVEN D/T UNABLE TO TOLERATE.
[2019-11-14 21:52] VITALS: BP 106/51
[2019-11-15 02:00] VITALS: BP 107/44
[2019-11-15 06:19] VITALS: BP 125/56
[2019-11-15 08:12] VITALS: BP 118/46
[2019-11-15 11:40] VITALS: BP 104/39
--- NOTE | 2019-11-15 12:29 | NUR ---
PT LETHARGIC, EYES OPEN WHEN ROLLING BUT SHE REMAINS OTHERWISE UNRESPONSIVE. CATHETER INTACT, VERY LITTLE TO NO URINE OUTPUT. DAUGHTER AND SON AT BEDSIDE WITH HOUSE SUPERVISORS APPROVAL. TURNED Q2 HRS. PT IS CONSISTANTLY T[place]YPNICH, ADMINISTERING MORPHINE OR ZOPHRAN TO AID WITH COMFORT. FAMILY REFUSING ALL I/V ABX. COMFORT CARE. WILL CNT. TO MONITOR. CL IN REACH, SRX2.
--- NOTE | 2019-11-15 14:02 | NUR ---
I have reviewed this patient and I concur with the Shift Assessment completed by the Licensed Practical Nurse today this shift.
[2019-11-15 15:00] VITALS: BP 102/38
--- NOTE | 2019-11-15 17:14 | NUR ---
PT HAD NOTED PROGRESSIVE MODELING THROUGHOUT THE DAY. AT TIME NOTED ON MAY, I ADMINISTERED PRN ATIVAN FOR AGITATION. FAMILY STATED THEY WOULD BE LEAVING FOR SUPPER. 15MIN LATER I CHECKED ON THE PT, SHE WAS IN ACTIVE AGONAL RESPIRATIONS. CALLED FAMILY IMMEDIATELY AND INFORMED THEM THEY SHOULD COME BACK QUICKLY SAFELY POSSIBLE. WITHIN THAT 5 MINUTES I WAS CALLING THE FAMILY, THE PT PASSED PEACEFULLY. IMMEDIATELY AFTER GETTING OFF THE PHONE I WENT BACK TO PTS ROOM, PT HAD NO RESPIRATIONS/LUNG SOUNDS, WAS ASYSTOLE ON THE MONITOR, AND HAD NO PALPABLE PULSE. INFROMED DR. CARRASQUILLO WHO WAS ON THE FLOOR. SHE PRONOUNCED. CALLED PTS DAUGHTER, THEY ARE ON THE WAY. REMOVED I/V, TIP INTACT. REMOVED BARRETT. REMOVED TELE. CLEANED ALL TRASH FROM THE ROOM. REPOSITIONED/CLEANED PT. MADE SURE LINNENS WERE CLEAN AND DRY. PROVIDED TISSUES. AWAITING ARIVAL OF FAMILY.
--- NOTE | 2019-11-15 17:21 | NUR ---
FAMILY MEMEBRS ARRIVED. CALLED [facility] @0141 PER FAMILYS REQUEST.
--- NOTE | 2019-11-15 18:22 | NUR ---
PT ESCORTED OUT VIA STRETCHER WITH HOME. FAMILY TOOK SLIPPERS AND GLASSES WHICH WERE THE ONLY PT BELONGINGS IN THE ROOM.
--- NOTE | 2019-11-19 13:03 | MORECARE ---
CASE MANAGEMENT DISCHARGE SUMMARY PATIENT: GIBRAN TREJO UNIT: [id number] ADM DATE: 11/09/19 AGE: 84 : 31 SEX: F ROOM/BED: D.2100 AUTHOR: NADIRA,DOC PHYSICIAN: REFERRING PHYSICIAN: LAKIA LOBATO MD DATE OF SERVICE: 11/19/19 Discharge Plan Patient Name: GIBRAN TREJO Facility: [facility]:[place] : 1935 Planned Disposition: Hospice Medical Facility Anticipated Discharge Date: Discharge Date: 11/15/2019 Expected LOS: Initial Reviewer: [email or web address] Initial Review Date: 11/11/2019 Generated: 11/19/19 2:02 pm Comments DCP- Discharge Planning Updated by [id number]: Evelia Stevenson on 11/13/19 1:[address] Eleonora with [facility] assessed patient. She does not meet inpatient criteria today. Eleonora states they will reassess over the weekend to see if she meets GIP. If she has any deterioration of her condition, nurse may call [facility] to reassess at any time (any oxygen needs, pain medication needs, vs deterioration). [facility] - [phone] DCP- Discharge Planning Updated by [id number]: Evelia Stevenson on 11/12/19 2:[address] Received a call from Joy Trejo that his sister is here and they would like to consult [facility]. I placed a call to Max with [facility] and informed him that family would like to meet tomorrow morning at 9am here at the hospital outside his mother's room. Max states he will be here at 9am. Clinical faxed to [facility]. CM will continue to follow and assist with discharge planning/needs. DCP- Discharge Planning Updated by [email or web address]: Evelia Stevenson on 11/11/19 9:[address] Patient Name: GIBRAN TREJO Admission Status: ER Accout number: [id number] Admission Date: 11-09-2019 : 1935 Admission Diagnosis:UNSPECIFIED ABDOMINAL PAIN Attending: CHRIS Current LOS: 2 Anticipated DC Date: Planned Disposition: Hospice Medical Facility Primary Insurance: MEDICARE A & B Discharge Planning Comments: CM received an order for Hospice. I was notified not to speak to patient in the room about hospice, but to call his son. I called his son and he met me on the unit to discuss hospice. I provided him with a CHAZ form and explained home hospice vs inpatient hospice. I don't see her meeting criteria for inpatient hospice at this time. Patient has a private care given, but son states he has suspended that at this time. Patient lives alone with her dog, son lives behind her. She may be a candidate for rehab for strengthening prior to discharge home if that is what they decide. Son states he will call me tomorrow after his sister has flown in to discuss more in detail. CM will continue to follow and assist with discharge planning/needs. Director Microbiology: Evelia Stevenson DCPIA - Discharge Planning Initial Assessment Updated by [email or web address]: Evelia Stevenson on 11/11/19 10:41 am * Is the patient Alert and Oriented? Yes * How many steps to enter\exit or inside your home? 6/0 * PCP Dr. Gunn * Pharmacy [facility] [address] * Preadmission Environment Home Alone * ADLs Partial Dependent * Partial ADLs (Assistance needed) Ambulation * Equipment Cane Walker * List name and contact numbers for known caregivers / representatives who currently or will assist patient after discharge: Joy Trejo - son - [phone] * Verbal permission to speak to the caregivers and representatives has been obtained from the patient. Yes * Community resources currently utilized Private Duty Care * Additional services required to return to the preadmission environment? Yes * Can the patient safely return to the preadmission environment? Yes * Has this patient been hospitalized within the prior 30 days at any hospital? No Coverage Notice Reviewer: [id number] - Evelia Stevenson Notice Issued Date-Time: 11/12/2019 15:47 Notice Type: Patient Choice Letter Notice Delivered To: Family Member Relationship to Patient: Son Hospital Tray Service Worker Name: JOY TREJO Delivery Method: HAND - Hand Delivered Genesis Days: Prior Verbal Notification: Recipient Understood Notice: Yes Recipient Signature: Yes Med Rec Note Co-signed by Attending: Coverage Notice Comment: [facility] Last DP export: 11/13/19 1:37 p Patient Name: GIBRAN TREJO Page [id number] at 1303 All edits/amendments must be made on the electronic document DICTATION DATE: 11/19/19 1303 ELECTRONIC WIRER: KEVIN 11/19/19 1303 RPT#: [id number] DC DATE:11/15/19 STATUS: DIS IN [facility] [address] [place] [address] END OF REPORT
--- NOTE | 2019-11-23 20:56 | NUR ---
LATE ENTRY FOR 11/09/2019 ZOSYN STARTED AT 1630, STOPPED AT 1700 VANC STARTED AT 1717, STOPPED AT 1817
== END 2019-11-15 18:29 | DRG 682 ==
LOC: D.ER 12:32 → D.M2 17:03
PROVIDERS: Family Medicine; Internal Medicine Nephrology; ADMIT Family Medicine; ATTEND Family Medicine
DX: N17.9 Acute kidney failure, unspecified (principal); G93.41 Metabolic encephalopathy; R40.2114 Coma scale, eyes open, never, 24 hours or more after hospital admission; R40.2314 Coma scale, best motor response, none, 24 hours or more after hospital admission; R40.2214 Coma scale, best verbal response, none, 24 hours or more after hospital admission; C92.50 Acute myelomonocytic leukemia, not having achieved remission; J84.9 Interstitial pulmonary disease, unspecified; N39.0 Urinary tract infection, site not specified; I12.9 Hypertensive chronic kidney disease with stage 1 through stage 4 chronic kidney disease, or unspecified chronic kidney disease; D63.1 Anemia in chronic kidney disease; I25.10 Atherosclerotic heart disease of native coronary artery without angina pectoris; D69.6 Thrombocytopenia, unspecified; E78.5 Hyperlipidemia, unspecified; F41.8 Other specified anxiety disorders; E03.9 Hypothyroidism, unspecified; M19.90 Unspecified osteoarthritis, unspecified site; N18.3 Chronic kidney disease, stage 3 (moderate); E86.0 Dehydration